=== PATIENT | female | born 1955 | race American Indian/Alaskan Native ===

== ENCOUNTER 2017-01-14 21:30 | Inpatient (IN) | payer OTHER ==
[2017-01-14] MEDS ORDERED: NACL 0.9% 1000 ML 1,000 ML ONE (22:00)
--- NOTE | 2017-01-14 22:03 | Emergency Department Report ---
HPI - General Chief Complaint: Altered Mental Status Time Seen by Provider: 01/14/17 21:52 - HPI HPI: Room 5 The patient is a 61-year-old female presenting with a chief complaint of altered mental status. The patient has a history of diabetes and it is unknown the last time she took her insulin. Per EMS the daughter felt the patient in a confused state and rambling and called EMS. EMS started an IV and transported the patient to the ED for evaluation. The patient was found to be hyperglycemic (556) and confused. The patient does not respond to questions verbally but thrashes about the bed and exhibits what appears to be Kussmaul respirations. There is no family at bedside Location: Mental state Duration: Unknown Quality: Altered, hyperglycemic Severity: Glucose 556 Modifying factors: [see above] Context: [see above] Mode of transportation: EMS ED Past Medical Hx - Past Medical History Hx Diabetes: Yes - Surgical History Additional Surgical History: Unknown - Family History Family history: no significant - Social History Smoking Status: Unknown if ever smoked Substance Use Type: None ED Review of Systems ROS: Stated complaint: HBS Other details as noted in HPI Comment: Unobtainable due to pts medical conditions Physical Exam - Physical Exam Vital Signs: Vital Signs 01/14/17 21:31 Temperature 97.3 F L Pulse Rate 96 H O2 Sat by Pulse 100 Oximetry Physical Exam: GENERAL: The patient is well-developed well-nourished female lying transversely across stretcher with head and legs sticking out of rails appearing confused with Kussmaul respirations. [] HEENT: Normocephalic. Atraumatic. Patient has dry mucous membranes. NECK: Supple. Trachea midline CHEST/LUNGS: K[place]maul respirations HEART/CARDIOVASCULAR: Regular. There is no tachycardia. There is no gallop rub or murmur. ABDOMEN: Abdomen is soft, nontender. Patient has normal bowel sounds. There is no abdominal distention. SKIN: There is no rash. There is no edema. There is no diaphoresis. NEURO: The patient is lethargic in appearance, patient thrashes about the bed at times. Patient does not respond verbally. MUSCULOSKELETAL: There is no evidence of acute injury. ED Course Vital Signs 01/14/17 21:31 Temperature 97.3 F L Pulse Rate 96 H O2 Sat by Pulse 100 Oximetry ED Medical Decision Making - Lab Data Result diagrams: 01/14/17 22:04 01/14/17 22:04 Laboratory Tests 01/14/17 01/14/17 01/14/17 22:04 22:04 22:04 WBC 10.7 RBC 3.50 L Hgb 9.6 L Hct 34.9 MCV 100 H MCH 27 L MCHC 27 L RDW 16.3 H Plt Count 294 Lymph % (Auto) 12.3 L [place] % (Auto) 5.4 Eos % (Auto) 0.0 Baso % (Auto) 0.2 Lymph # 1.3 [place] # 0.6 Eos # 0.0 Baso # 0.0 Seg Neutrophils % 82.1 H Seg Neutrophils # 8.8 H PT INR APTT VBG pH 6.857 L* Sodium 125 L Potassium 5.1 H Chloride 81.6 L BUN 44 H Creatinine 2.3 H Estimated GFR 26 BUN/Creatinine Ratio 19.13 Calcium 8.6 Total Creatine Kinase CK-MB (CK-2) CK-MB (CK-2) Rel Index Troponin T NT-Pro-B Natriuret Pep Plasma/Serum Alcohol 01/14/17 01/14/17 01/14/17 22:04 22:04 22:04 WBC RBC Hgb Hct MCV MCH MCHC RDW Plt Count Lymph % (Auto) [place] % (Auto) Eos % (Auto) Baso % (Auto) Lymph # [place] # Eos # Baso # Seg Neutrophils % Seg Neutrophils # PT 15.6 H INR 1.25 H APTT 24.3 VBG pH Sodium Potassium Chloride BUN Creatinine Estimated GFR BUN/Creatinine Ratio Calcium Total Creatine Kinase 120 CK-MB (CK-2) 3.6 CK-MB (CK-2) Rel Index 3.0 Troponin T < 0.010 NT-Pro-B Natriuret Pep 768.5 Plasma/Serum Alcohol < 0.01 - Differential Diagnosis EKG,Electrolytimbalance, infection, substance abuse, alcohol intoxication Critical care attestation.: If time is entered above; I have spent that time in minutes in the direct care of this critically ill patient, excluding procedure time. ED Disposition Clinical Impression: DKA (diabetic ketoacidoses) Disposition: OP ADMITTED IP TO THIS HOSP Is pt being admited?: Yes Does the pt Need Aspirin: No Condition: Serious Instructions: Diabetic Ketoacidosis (ED) Time of Disposition: 22:56 (hospitalist paged)
[2017-01-14 22:25] LABS: Basophils % (Auto) 0.2 % (0.0-1.8); Mean Corpuscular HGB Conc 27 % (30-34); Mean Corpuscular Hemoglobin 27 pg (28-32); Mean Corpuscular Volume 100 fl (79-97); Platelet Count 294 K/mm3 (140-440); Red Cell Distribution Width 16.3 % (13.2-15.2); White Blood Count 10.7 K/mm3 (4.5-11.0)
[2017-01-14] MEDS ORDERED: SODIUM BICARBONATE IV ONE ×4 (22:31→23:58)
[2017-01-14] MEDS ORDERED: NACL 0.9% 1000 ML 1,000 ML IV ONE (22:31)
[2017-01-14 22:32] LABS: Hematocrit 34.9 % (30.3-42.9); Hemoglobin 9.6 gm/dl (10.1-14.3)
[2017-01-14 22:37] LABS: INR 1.25 (0.87-1.13); Partial Thromboplastin Time 24.3 Sec. (24.2-36.6)
[2017-01-14 22:42] LABS: Creatine Kinase MB 3.6 ng/mL (0.0-4.0)
[2017-01-14 22:43] LABS: BUN/Creatinine Ratio 19.13; Calcium 8.6 mg/dL (8.4-10.2); Chloride 81.6 mmol/L (98-107); Potassium 5.1 mmol/L (3.6-5.0)
[2017-01-14 22:44] LABS: Creatine Kinase 120 units/L (30-135)
[2017-01-14] MEDS ORDERED: D50W (25GM) IV PRN (22:54)
[2017-01-14] MEDS ORDERED: NovoLIN R 100 UNITS in NACL 0.9% 99 ML IV SCH (23:00)
[2017-01-14] MEDS ORDERED: ROCEPHIN/NS 1 GM/50 ML 1 GM/50 ML BAG IV ONE (23:17)
[2017-01-14 23:26] LABS: B-Hydroxybutyrate 141.4 mg/dL (0.2-2.8)
[2017-01-14 23:44] LABS: BUN/Creatinine Ratio 18.69; Blood Urea Nitrogen 43 mg/dL (7-17); Calcium 8.4 mg/dL (8.4-10.2); Magnesium 2.2 mg/dL (1.7-2.3); Phosphorous 6.1 mg/dL (2.5-4.5)
[2017-01-14 23:45] LABS: Chloride 83.1 mmol/L (98-107); Potassium 5.3 mmol/L (3.6-5.0); Sodium 124 mmol/L (137-145)
[2017-01-14] MEDS ORDERED: NACL 0.9% 1000 ML 1,000 ML IV SCH (23:45)
[2017-01-14] MEDS: NovoLIN R 100 UNITS in NACL 0.9% 99 ML IV SCH (23:45)
[2017-01-14] MEDS ORDERED: ZOFRAN IV PRN (23:49)
[2017-01-14] MEDS ORDERED: DULCOLAX PR PRN (23:49)
[2017-01-14] MEDS ORDERED: ALUM-MAG HYDROX-SIMETH 200-200-20MG/5ML PO PRN (23:49)
[2017-01-14 23:54] LABS: Anion Gap 44 mmol/L
--- NOTE | 2017-01-14 23:54 | History and Physical Report ---
History of Present Illness Date of examination: 01/14/17 History of present illness: 61-year-old woman with a history of diabetes was brought to the emergency room because her blood sugars at home have been very high, she's had multiple episodes of nausea vomiting. Spouse at bedside stated that patient does not take her insulin as she should. Other review of system is unobtainable PAST SURGICAL HISTORY: Fibroidectomy SOCIAL HISTORY: Denies alcohol, tobacco, drugs FAMILY HISTORY: Diabetes Medications and Allergies Allergies Allergy/AdvReac Type Severity Reaction Status Date / Time meperidine HCl [From Demerol] Allergy Itching Verified 01/15/17 02:53 Home Medications Medication Instructions Recorded Confirmed Last Taken Type Unobtainable 01/15/17 01/15/17 Unknown History Active Meds: Active Medications Acetaminophen (Tylenol) 650 mg PO Q6H PRN PRN Reason: Pain Al Hydrox/Mg Hydrox/Simethicone (Alum-Mag Hydrox-Simeth [id number]/5ml) 30 ml PO Q4H PRN PRN Reason: Indigestion Bisacodyl (Dulcolax) 10 mg [place] QDAY PRN PRN Reason: constipation unrelieved by MOM Dextrose (D50w (25gm)) 0 ml IV ONCE PRN PRN Reason: Hypoglycemia Dextrose (D50w (25gm)) 0 ml IV ONCE PRN PRN Reason: Hypoglycemia Enoxaparin Sodium (Lovenox) 30 mg SUB-Q QDAY RUBIO Insulin Human Regular 100 (units/ Sodium Chloride) 100 mls @ 6 mls/hr IV TITR RUBIO; 6 UNITS/HR PRN Reason: Protocol Potassium Chloride/Dextrose/Sod Cl (D5w/0.45% Nacl/Kcl 20 Meq) 20 meq in 1,000 mls @ 125 mls/hr IV DIRECT RUBIO Sodium Chloride (Nacl 0.9% 1000 Ml) 1,000 mls @ 150 mls/hr IV DIRECT RUBIO Insulin Human Regular 100 (units/ Sodium Chloride) 100 mls @ 1 mls/hr IV TITR RUBIO; 1 UNITS/HR PRN Reason: Protocol Ondansetron HCl (Zofran) 4 mg IV Q8H PRN PRN Reason: N/V unrelieved by Reglan Exam - Physical Exam Narrative exam: Gen. appearance: Patient lying in bed, no apparent distress HEENT: Normocephalic, atraumatic, pupils equally round and reactive to light, unable to do extraocular movement , and no sclericterus,. No JVD or thyromegaly or nodule,neck supple, no carotid bruit ,mucous membranes dry, no exudate or erythema Heart: S1, S2, regular rate and rhythm Lungs: Clear to auscultation bilaterally, breathing comfortable Abdomen: Positive bowel sounds, nontender, nondistended, no organomegaly Extremity: No edema, cyanosis, clubbing Skin: No rash, nodules, warm, dry Neuro: Confused, moves all extremities - Constitutional Vitals: Temp Pulse Resp BP Pulse Ox 89.9 F L 96 H 35 H 100 01/14/17 23:00 01/14/17 21:31 01/14/17 22:33 01/14/17 22:33 Results - Labs CBC & Chem 7: 01/18/17 05:47 01/18/17 05:47 Labs: Abnormal lab results 01/14/17 01/14/17 01/14/17 Range/Units 21:54 22:04 22:04 RBC 3.50 L (3.65-5.03) M/mm3 Hgb 9.6 L (10.1-14.3) gm/dl MCV 100 H (79-97) fl MCH 27 L (28-32) pg MCHC 27 L (30-34) % RDW 16.3 H (13.2-15.2) % Lymph % (Auto) 12.3 L (13.4-35.0) % Seg Neutrophils % 82.1 H (40.0-70.0) % Seg Neutrophils # 8.8 H (1.8-7.7) K/mm3 PT (12.2-14.9) Sec. INR (0.87-1.13) VBG pH (7.320-7.420) Sodium 125 L (137-145) mmol/L Potassium 5.1 H (3.6-5.0) mmol/L Chloride 81.6 L (98-107) mmol/L Carbon Dioxide 3 L* (22-30) mmol/L BUN 44 H (7-17) mg/dL Creatinine 2.3 H (0.7-1.2) mg/dL Glucose 746 H* (65-100) mg/dL POC Glucose > 500 H (70-105) Phosphorus (2.5-4.5) mg/dL Ketones 141.4 H (0.2-2.8) mg/dL 01/14/17 01/14/17 01/14/17 Range/Units 22:04 22:04 22:50 RBC (3.65-5.03) M/mm3 Hgb (10.1-14.3) gm/dl MCV (79-97) fl MCH (28-32) pg MCHC (30-34) % RDW (13.2-15.2) % Lymph % (Auto) (13.4-35.0) % Seg Neutrophils % (40.0-70.0) % Seg Neutrophils # (1.8-7.7) K/mm3 PT 15.6 H (12.2-14.9) Sec. INR 1.25 H (0.87-1.13) VBG pH 6.857 L* (7.320-7.420) Sodium (137-145) mmol/L Potassium (3.6-5.0) mmol/L Chloride (98-107) mmol/L Carbon Dioxide (22-30) mmol/L BUN (7-17) mg/dL Creatinine (0.7-1.2) mg/dL Glucose (65-100) mg/dL POC Glucose > 500 H (70-105) Phosphorus (2.5-4.5) mg/dL Ketones (0.2-2.8) mg/dL 01/14/17 01/14/17 Range/Units 23:15 23:15 RBC (3.65-5.03) M/mm3 Hgb (10.1-14.3) gm/dl MCV (79-97) fl MCH (28-32) pg MCHC (30-34) % RDW (13.2-15.2) % Lymph % (Auto) (13.4-35.0) % Seg Neutrophils % (40.0-70.0) % Seg Neutrophils # (1.8-7.7) K/mm3 PT (12.2-14.9) Sec. INR (0.87-1.13) VBG pH (7.320-7.420) Sodium 124 L (137-145) mmol/L Potassium 5.3 H (3.6-5.0) mmol/L Chloride 83.1 L (98-107) mmol/L Carbon Dioxide (22-30) mmol/L BUN 43 H (7-17) mg/dL Creatinine 2.3 H (0.7-1.2) mg/dL Glucose (65-100) mg/dL POC Glucose (70-105) Phosphorus 6.1 H (2.5-4.5) mg/dL Ketones (0.2-2.8) mg/dL - Imaging and Cardiology EKG: image reviewed Assessment and Plan Severe DKA Severe metabolic acidosis Altered mental status secondary to #1 Pseudohyponatremia Hypotension Start aggressive IV fluids, insulin drip Give sodium bicarbonate now, monitor serum electrolytes, check fingersticks Start empiric antibiotic, check CT head, start DVT prophylaxis Consult Critical care
[2017-01-14 23:56] LABS: Carbon Dioxide < 2.0 mmol/L (22-30); Glucose 737 mg/dL (65-100)
[2017-01-15] MEDS ORDERED: SODIUM BICARBONATE IV ONE ×3 (00:08→01:16)
[2017-01-15 00:49] LABS: Calcium 7.7 mg/dL (8.4-10.2); Chloride 84.5 mmol/L (98-107); Potassium 4.3 mmol/L (3.6-5.0)
[2017-01-15 00:50] LABS: Phosphorous 5.7 mg/dL (2.5-4.5)
[2017-01-15] MEDS ORDERED: VANCOMYCIN/NS 1 GM/250 ML 1 GM/250 ML BAG IV ONE (01:20)
[2017-01-15] MEDS ORDERED: LEVOPHED DRIP 4 MG/NS 250 ML 4 MG/250 ML BAG IV SCH (02:00)
[2017-01-15 05:27] LABS: BUN/Creatinine Ratio 20.52; Calcium 7.1 mg/dL (8.4-10.2); Chloride 90.9 mmol/L (98-107); Potassium 3.3 mmol/L (3.6-5.0)
[2017-01-15] MEDS ORDERED: NACL 0.9% 1000 ML 1,000 ML IV SCH (06:00)
[2017-01-15 07:47] LABS: Calcium 7.4 mg/dL (8.4-10.2); Potassium 3.3 mmol/L (3.6-5.0)
[2017-01-15] MEDS: D5W/0.45% NACL/KCL 20 MEQ 20 MEQ/1,000 ML BAG IV SCH (08:00)
[2017-01-15] MEDS: KCL 20MEQ/100ML 20 MEQ/100 ML BAG IV SCH ×2 (09:26→11:00)
[2017-01-15] MEDS ORDERED: LOVENOX SUB-Q SCH (10:00)
[2017-01-15] MEDS ORDERED: LEVAQUIN 750MG/150ML 750 MG/150 ML BAG IV SCH (10:00)
[2017-01-15] MEDS ORDERED: VANCOMYCIN PHARMACY TO DOSE IV SCH (10:00)
[2017-01-15] MEDS ORDERED: PEPCID IV SCH (10:00)
[2017-01-15] MEDS: NovoLIN R 100 UNITS in NACL 0.9% 99 ML IV SCH ×8 (10:03→18:00)
[2017-01-15] MEDS ORDERED: VANCOMYCIN VIAL 1,250 MG in NACL 0.9% 500 ML 500 ML IV ONE (11:00)
[2017-01-15] MEDS ORDERED: VANCOMYCIN VIAL 1,250 MG in NACL 0.9% 250ML 250 ML IV ONE (11:00)
[2017-01-15] MEDS ORDERED: MAXIPIME/NS 1 GM/100 ML 1 GM/100 ML BAG IV SCH (12:00)
[2017-01-15 12:10] LABS: ISTAT Base Excess -7; ISTAT HCO3 18.2; ISTAT PO2 163 (80-105); ISTAT SO2 99; ISTAT TCO2 19
[2017-01-15] MEDS: NACL 0.9% 1000 ML 1,000 ML IV SCH ×2 (12:14→13:17)
[2017-01-15 12:39] LABS: Urine Drugs of Abuse Note Disclamer
[2017-01-15 12:51] LABS: Bacteria,Urine 1+ /HPF (Negative); Bilirubin,Urine NEG (Negative); Blood,Urine MOD (Negative); Ketones,Urine 20 mg/dL (Negative); Leukocyte Esterase,Urine LG (Negative); Mucus,Urine FEW /HPF; Nitrite,Urine NEG (Negative); Urobilinogen,Urine < 2.0 mg/dL (<2.0)
[2017-01-15 13:04] LABS: WBC,Urine > 182.0 /HPF (0.0-6.0)
[2017-01-15] MEDS: HEPARIN SUB-Q SCH ×2 (13:19→21:20)
--- NOTE | 2017-01-15 13:39 | Admit Criteria Form ---
Admission Criteria Documentation: DIABETES Clinical Indications for Admission to Inpatient Care (Place 'X' for any and all applicable criteria): Admission is indicated by presence of ALL (if I & II) or ANY ONE (if III or IV) of the following (1)(2)(3)(4): [X]I. Diabetes is uncontrolled as indicated by ANY ONE of the following: [X]a) Diabetic ketoacidosis as indicated by ALL of the following (8): [X]i) Hyperglycemia (eg, plasma glucose greater than 200 mg/ dL (11.1 mmol/L)) [X]ii) Acidosis (eg, arterial pH less than 7.30, serum bicarbonate level less than 15 mEq/L (mmol/L)) [X]iii) Moderate ketonuria or ketonemia [ ]b) Hyperglycemic hyperosmolar state as indicated by ALL of the following(9)(10): [ ]i) Neurologic dysfunction (eg, stupor, coma, hemiparesis , seizure)(13) [ ]ii) Plasma glucose greater than 600 mg/dL (33.3 mmol/L) [ ]iii) Serum osmolality greater than 320 mOsm/kg (mmol/kg) [X]c) Severe signs or symptoms secondary to hyperglycemia indicated by ANY ONE of the following: [X]i) Altered mental status(10) [X]ii) Significant hypovolemia or dehydration [ ]iii) Intractable nausea or vomiting [ ]iv) Unexplained fever or severe infection [X]v) Severe electrolyte abnormality (eg, hypokalemia, hyperkalemia, hypernatremia) [ ]II. Management at other levels of care (Also use Diabetes: Observation Care as appropriate) is not feasible because of ANY ONE of the following: [ ]a) Condition was not adequately corrected with treatment at other levels of care. [ ]b) Treatment at other levels of care is not appropriate because of condition severity (eg, hyperosmolar coma). [X]III. Contraindications and/or Inappropriate clinical situations for Observational Care in patients with Diabetes, when ANY ONE of the following is required: [ X]a) Patient require specific diagnostic workup or therapeutic intervention 22 [ X]b) Patient with abnormal vital signs or altered mental status 23 [X]IV. General contraindications and/or Inappropriate clinical situations for Observational Care in patients with Diabetes, when ANY ONE of the following is required: [ ]a) Prediction of prolongation of LOS based on ANY ONE of the following may be considered as a contraindication for observational care 2, 3, 4, 5, 6, 7, 8, 9, 10, 11 [ ]i) Age > 65 yrs. [ ]ii) Patient arriving by ambulance [ ]iii) Patient with high acuity [ ]iv) Patient requiring vital sign monitoring [X]v) Patient on IV medication [ ]b) Systolic blood pressures 180mmHg 3,12 [X ]c) Patient with altered mental status including delirium and other alteration of consciousness, (3) [ ]d) Patient whose discharge disposition will be to a fpc home or rehabilitation home should not be managed in Emergency Department Observation Unit. CMS rule requires 3 days hospital stay before such placement.3,13 [ ]e) Patient with failure to thrive due to broad array of etiologies 3,16,17 [ ]f) Inability to ambulate 3,14 Extended stay beyond goal length of stay may be needed for(3)(20): [ ]a) Treatment of precipitating causes [ ]b) Development of hypoglycemia [ ]c) Complications of treatment [ ]d) Complications of decompensated diabetes (eg, acute gastric dilatation, persistent metabolic or neurologic derangement) [ ]e) Active Comorbidities [ ]f) Older patients( 65 years or older) The original [employer] content created by [employer] has been revised. The portions of the content which have been revised are identified through the use of italic text or in bold,and [facility] has neither reviewed nor approved the modified material. All other unmodified content is copyright [facility] [employer]. Please see references footnoted in the original [facility] edition 2016 Admission Criteria Met: Yes
[2017-01-15 16:15] LABS: Calcium 6.7 mg/dL (8.4-10.2)
--- NOTE | 2017-01-15 16:24 | Consultation ---
History of Present Illness Consult date: 01/15/17 Requesting physician: ALEX LARSEN Reason for consult: other (DKA, ? Sepsis) History of present illness: 61 yo admitted with weakness, hypotension requiring pressors, altered mental status, N/V/D and poor PO intake. Recently d/c'd from [facility] due to DKA, got worse after getting home. No fevers, chills, chest pain, bloody stools. Active Medications Acetaminophen (Tylenol) 650 mg PO Q6H PRN PRN Reason: Pain Al Hydrox/Mg Hydrox/Simethicone (Alum-Mag Hydrox-Simeth [phone]/5ml) 30 ml PO Q4H PRN PRN Reason: Indigestion Bisacodyl (Dulcolax) 10 mg AL QDAY PRN PRN Reason: constipation unrelieved by MOM Dextrose (D50w (25gm)) 0 ml IV ONCE PRN PRN Reason: Hypoglycemia Famotidine (Pepcid) 20 mg IV DAILY RUBIO Last Admin: 01/15/17 10:08 Dose: 20 mg Heparin Sodium (Porcine) (Heparin) 5,000 unit SUB-Q Q8HR RUBIO Last Admin: 01/15/17 13:19 Dose: 5,000 unit Potassium Chloride/Dextrose/Sod Cl (D5w/0.45% Nacl/Kcl 20 Meq) 20 meq in 1,000 mls @ 125 mls/hr IV DIRECT RUBIO Last Admin: 01/15/17 08:00 Dose: 125 mls/hr Insulin Human Regular 100 (units/ Sodium Chloride) 100 mls @ 1 mls/hr IV TITR RUBIO; 1 UNITS/HR PRN Reason: Protocol Last Admin: 01/15/17 15:57 Dose: 1.5 units/hr, 1.5 mls/hr Norepinephrine (Levophed Drip 4 Mg/Ns 250 Ml) 4 mg in 250 mls @ 7.5 mls/hr IV TITR RUBIO; 2 MCG/MIN PRN Reason: Protocol Last Admin: 01/15/17 02:09 Dose: 2 mcg/min, 7.5 mls/hr Cefepime HCl (Maxipime/Ns 1 Gm/100 Ml) 1 gm in 100 mls @ 200 mls/hr IV Q24HR RUBIO PRN Reason: Protocol Last Admin: 01/15/17 11:02 Dose: 200 mls/hr Levofloxacin/Dextrose (Levaquin 750mg/150ml) 750 mg in 150 mls @ 100 mls/hr IV Q48HR RUBIO PRN Reason: Protocol Last Admin: 01/15/17 10:08 Dose: 100 mls/hr Ondansetron HCl (Zofran) 4 mg IV Q8H PRN PRN Reason: N/V unrelieved by Reglan Vancomycin HCl (Vancomycin Pharmacy To Dose) 1 each IV PKCONSULT RUBIO PRN Reason: Protocol Past History Past Medical History: other (DM) Social history: full code. denies: smoking, alcohol abuse, prescription drug abuse, IV drug use Family history: other (No pulm issues reported) Medications and Allergies Allergies Allergy/AdvReac Type Severity Reaction Status Date / Time meperidine HCl [From Demerol] Allergy Itching Verified 01/15/17 02:53 Home Medications Medication Instructions Recorded Confirmed Last Taken Type Unobtainable 01/15/17 01/15/17 Unknown History Active Meds: Active Medications Acetaminophen (Tylenol) 650 mg PO Q6H PRN PRN Reason: Pain Al Hydrox/Mg Hydrox/Simethicone (Alum-Mag Hydrox-Simeth [id number]/5ml) 30 ml PO Q4H PRN PRN Reason: Indigestion Bisacodyl (Dulcolax) 10 mg AL QDAY PRN PRN Reason: constipation unrelieved by MOM Dextrose (D50w (25gm)) 0 ml IV ONCE PRN PRN Reason: Hypoglycemia Famotidine (Pepcid) 20 mg IV DAILY RUBIO Last Admin: 01/15/17 10:08 Dose: 20 mg Heparin Sodium (Porcine) (Heparin) 5,000 unit SUB-Q Q8HR RUBIO Last Admin: 01/15/17 13:19 Dose: 5,000 unit Potassium Chloride/Dextrose/Sod Cl (D5w/0.45% Nacl/Kcl 20 Meq) 20 meq in 1,000 mls @ 125 mls/hr IV DIRECT RUBIO Last Admin: 01/15/17 08:00 Dose: 125 mls/hr Insulin Human Regular 100 (units/ Sodium Chloride) 100 mls @ 1 mls/hr IV TITR RUBIO; 1 UNITS/HR PRN Reason: Protocol Last Admin: 01/15/17 15:57 Dose: 1.5 units/hr, 1.5 mls/hr Norepinephrine (Levophed Drip 4 Mg/Ns 250 Ml) 4 mg in 250 mls @ 7.5 mls/hr IV TITR RUBIO; 2 MCG/MIN PRN Reason: Protocol Last Admin: 01/15/17 02:09 Dose: 2 mcg/min, 7.5 mls/hr Cefepime HCl (Maxipime/Ns 1 Gm/100 Ml) 1 gm in 100 mls @ 200 mls/hr IV Q24HR RUBIO PRN Reason: Protocol Last Admin: 01/15/17 11:02 Dose: 200 mls/hr Levofloxacin/Dextrose (Levaquin 750mg/150ml) 750 mg in 150 mls @ 100 mls/hr IV Q48HR RUBIO PRN Reason: Protocol Last Admin: 01/15/17 10:08 Dose: 100 mls/hr Ondansetron HCl (Zofran) 4 mg IV Q8H PRN PRN Reason: N/V unrelieved by Mikala Vancomycin HCl (Vancomycin Pharmacy To Dose) 1 each IV PKCONSULT RUBIO PRN Reason: Protocol Review of Systems All systems: negative (neg x 10 except as per HPI) Physical Examination Vital signs: Vital Signs Temp Pulse Pulse Ox 97.3 F L 96 H 100 01/14/17 21:31 01/14/17 21:31 01/14/17 21:31 Vital Signs - 24 hr 01/14/17 01/14/17 01/14/17 21:31 21:40 22:00 Temperature 97.3 F L Pulse Rate 96 H Respiratory Rate Blood Pressure 141/81 Blood Pressure [Left] O2 Sat by Pulse 100 100 99 Oximetry 01/14/17 01/14/17 01/14/17 22:33 23:00 23:30 Temperature 89.9 F L Pulse Rate 82 83 Respiratory 35 H 28 H 28 H Rate Blood Pressure Blood Pressure 84/72 92/48 [Left] O2 Sat by Pulse 100 100 100 Oximetry 01/15/17 01/15/17 01/15/17 00:00 00:30 01:00 Temperature Pulse Rate 89 87 91 H Respiratory 24 24 24 Rate Blood Pressure Blood Pressure 73/38 70/38 69/36 [Left] O2 Sat by Pulse 100 100 100 Oximetry 01/15/17 01/15/17 01/15/17 01:30 02:00 02:15 Temperature 90.4 F L Pulse Rate 92 H 92 H 86 Respiratory 22 22 20 Rate Blood Pressure Blood Pressure 76/43 73/39 67/41 [Left] O2 Sat by Pulse 100 100 100 Oximetry 01/15/17 01/15/17 01/15/17 02:30 02:45 03:00 Temperature Pulse Rate 94 H 95 H 101 H Respiratory 20 20 20 Rate Blood Pressure Blood Pressure 85/47 93/49 100/58 [Left] O2 Sat by Pulse 100 100 100 Oximetry 01/15/17 01/15/17 01/15/17 03:30 04:47 04:49 Temperature 94.2 F L Pulse Rate 101 H Respiratory 20 Rate Blood Pressure 160/97 Blood Pressure 118/62 [Left] O2 Sat by Pulse 100 98 Oximetry 01/15/17 01/15/17 01/15/17 04:50 05:00 05:11 Temperature Pulse Rate 90 86 Respiratory 17 18 Rate Blood Pressure 160/97 144/96 144/96 Blood Pressure [Left] O2 Sat by Pulse 96 98 97 Oximetry 01/15/17 01/15/17 01/15/17 05:21 05:30 05:41 Temperature 94.2 F L Pulse Rate 86 105 H 106 H Respiratory 14 14 17 Rate Blood Pressure 145/101 119/67 119/67 Blood Pressure [Left] O2 Sat by Pulse 97 100 100 Oximetry 01/15/17 01/15/17 01/15/17 05:51 06:00 06:11 Temperature Pulse Rate 106 H 111 H 111 H Respiratory 13 14 14 Rate Blood Pressure 116/59 114/64 114/64 Blood Pressure [Left] O2 Sat by Pulse 100 100 100 Oximetry 01/15/17 01/15/17 01/15/17 06:21 06:30 06:41 Temperature Pulse Rate 103 H 102 H 101 H Respiratory 14 14 14 Rate Blood Pressure 112/65 103/59 103/59 Blood Pressure [Left] O2 Sat by Pulse 100 100 100 Oximetry 01/15/17 01/15/17 01/15/17 06:51 07:01 07:11 Temperature Pulse Rate 101 H 104 H 107 H Respiratory 12 13 17 Rate Blood Pressure 105/56 105/56 105/56 Blood Pressure [Left] O2 Sat by Pulse 100 100 100 Oximetry 01/15/17 01/15/17 01/15/17 07:21 07:30 07:41 Temperature Pulse Rate 106 H 105 H 103 H Respiratory 12 16 16 Rate Blood Pressure 111/57 110/58 110/58 Blood Pressure [Left] O2 Sat by Pulse 100 100 Oximetry 01/15/17 01/15/17 01/15/17 07:51 08:00 08:11 Temperature 98.1 F Pulse Rate 105 H 106 H 108 H Respiratory 17 18 17 Rate Blood Pressure 107/56 104/56 104/56 Blood Pressure [Left] O2 Sat by Pulse 100 100 Oximetry 01/15/17 01/15/17 01/15/17 08:21 08:30 08:41 Temperature Pulse Rate 107 H 108 H 109 H Respiratory 17 17 18 Rate Blood Pressure 106/54 106/55 106/55 Blood Pressure [Left] O2 Sat by Pulse 100 100 Oximetry 01/15/17 01/15/17 01/15/17 08:51 09:00 09:11 Temperature Pulse Rate 127 H 109 H 116 H Respiratory 21 16 16 Rate Blood Pressure 112/57 108/53 108/53 Blood Pressure [Left] O2 Sat by Pulse 100 100 Oximetry 01/15/17 01/15/17 01/15/17 09:21 09:30 09:41 Temperature Pulse Rate 108 H 108 H 108 H Respiratory 18 16 16 Rate Blood Pressure 115/60 105/56 105/56 Blood Pressure [Left] O2 Sat by Pulse 100 100 100 Oximetry 01/15/17 01/15/17 01/15/17 09:51 10:00 10:11 Temperature Pulse Rate 110 H 110 H 110 H Respiratory 18 17 20 Rate Blood Pressure 108/56 109/58 109/58 Blood Pressure [Left] O2 Sat by Pulse 100 100 Oximetry 01/15/17 01/15/17 01/15/17 10:21 10:31 10:41 Temperature Pulse Rate 112 H 111 H 112 H Respiratory 19 21 16 Rate Blood Pressure 111/64 111/64 111/64 Blood Pressure [Left] O2 Sat by Pulse 100 100 100 Oximetry 01/15/17 01/15/17 01/15/17 10:51 11:00 11:11 Temperature Pulse Rate 110 H 112 H 115 H Respiratory 15 16 17 Rate Blood Pressure 117/65 117/63 117/63 Blood Pressure [Left] O2 Sat by Pulse 100 100 Oximetry 01/15/17 01/15/17 01/15/17 11:21 11:30 11:41 Temperature Pulse Rate 116 H 121 H 119 H Respiratory 19 15 19 Rate Blood Pressure 120/66 114/61 114/61 Blood Pressure [Left] O2 Sat by Pulse 100 100 100 Oximetry 01/15/17 01/15/17 01/15/17 11:51 12:00 12:11 Temperature 99.0 F Pulse Rate 120 H 119 H 113 H Respiratory 17 17 15 Rate Blood Pressure 114/61 114/58 114/58 Blood Pressure [Left] O2 Sat by Pulse 100 100 100 Oximetry 01/15/17 01/15/17 01/15/17 12:21 12:30 12:41 Temperature Pulse Rate 115 H 114 H 125 H Respiratory 16 16 21 Rate Blood Pressure 121/64 117/62 117/62 Blood Pressure [Left] O2 Sat by Pulse 100 100 100 Oximetry 01/15/17 01/15/17 01/15/17 12:47 12:51 13:00 Temperature Pulse Rate 117 H 113 H Respiratory 15 16 Rate Blood Pressure 130/67 125/65 Blood Pressure [Left] O2 Sat by Pulse 99 100 100 Oximetry 01/15/17 01/15/17 01/15/17 13:11 13:21 13:30 Temperature Pulse Rate 113 H 112 H 111 H Respiratory 13 17 17 Rate Blood Pressure 125/65 123/66 128/69 Blood Pressure [Left] O2 Sat by Pulse 100 100 100 Oximetry 01/15/17 01/15/17 01/15/17 13:41 13:51 14:00 Temperature Pulse Rate 109 H 110 H 117 H Respiratory 16 15 16 Rate Blood Pressure 128/69 120/65 123/75 Blood Pressure [Left] O2 Sat by Pulse 100 100 100 Oximetry 01/15/17 01/15/17 01/15/17 14:11 14:21 14:30 Temperature Pulse Rate 118 H 113 H 116 H Respiratory 17 16 16 Rate Blood Pressure 123/75 128/75 123/72 Blood Pressure [Left] O2 Sat by Pulse 100 100 100 Oximetry 01/15/17 01/15/17 01/15/17 14:41 14:51 15:00 Temperature Pulse Rate 116 H 113 H 115 H Respiratory 14 13 14 Rate Blood Pressure 123/72 127/72 127/74 Blood Pressure [Left] O2 Sat by Pulse 100 100 100 Oximetry 01/15/17 01/15/17 01/15/17 15:11 15:21 15:30 Temperature Pulse Rate 114 H 111 H 112 H Respiratory 15 18 15 Rate Blood Pressure 127/74 124/72 121/71 Blood Pressure [Left] O2 Sat by Pulse 100 100 100 Oximetry 01/15/17 01/15/17 15:41 15:55 Temperature 98.0 F Pulse Rate 109 H Respiratory 14 Rate Blood Pressure 121/71 Blood Pressure [Left] O2 Sat by Pulse 100 Oximetry General appearance: alert (awake, answers questions), other (critically ill on pressors) Eyes: non-icteric ENT: oropharynx moist Neck: supple Effort: normal Ascultation: Bilateral: clear Cardiovascular: regular rate and rhythm Gastrointestinal: normoactive bowel sounds, soft, non-tender, non-distended Integumentary: normal Extremities: no cyanosis, no edema, pink and warm normal mental status, non-focal exam, pupils equal and round, CN II-XII normal mood appropriate, affect normal Results - Laboratory Findings CBC and BMP: 01/14/17 22:04 01/15/17 15:20 ABG POC ABG pH 7.350 (7.35-7.45) 01/15/17 11:52 POC ABG pCO2 33.0 (35-45) L 01/15/17 11:52 POC ABG pO2 163 (80-105) H 01/15/17 11:52 POC ABG HCO3 18.2 01/15/17 11:52 POC ABG Total CO2 19 01/15/17 11:52 POC ABG O2 Sat 99 01/15/17 11:52 PT/INR, D-dimer PT 15.6 Sec. (12.2-14.9) H 01/14/17 22:04 INR 1.25 (0.87-1.13) H 01/14/17 22:04 Abnormal lab findings: Abnormal Labs 01/15/17 01/15/17 01/15/17 00:15 00:15 04:30 POC ABG pCO2 POC ABG pO2 Sodium 131 L D Potassium 3.3 L D Chloride 84.5 L 90.9 L Carbon Dioxide 2 L* 5 L* BUN 44 H 39 H Creatinine 2.0 H 1.9 H Glucose 739 H* 512 H* POC Glucose Lactic Acid Calcium 7.7 L 7.1 L Phosphorus 5.7 H Urine WBC (Auto) 01/15/17 01/15/17 01/15/17 04:52 05:58 06:59 POC ABG pCO2 POC ABG pO2 Sodium Potassium 3.3 L Chloride Carbon Dioxide 9 L* BUN 38 H Creatinine 2.0 H Glucose 289 H POC Glucose 461 H 360 H Lactic Acid Calcium 7.4 L Phosphorus Urine WBC (Auto) 01/15/17 01/15/17 01/15/17 07:35 07:48 08:53 POC ABG pCO2 POC ABG pO2 Sodium Potassium Chloride Carbon Dioxide BUN Creatinine Glucose POC Glucose 227 H 239 H 181 H Lactic Acid Calcium Phosphorus Urine WBC (Auto) 01/15/17 01/15/17 01/15/17 09:05 09:59 10:57 POC ABG pCO2 POC ABG pO2 Sodium Potassium Chloride Carbon Dioxide BUN Creatinine Glucose POC Glucose 148 H 113 H Lactic Acid 9.4 H* Calcium Phosphorus Urine WBC (Auto) 01/15/17 01/15/17 01/15/17 11:48 11:52 12:30 POC ABG pCO2 33.0 L POC ABG pO2 163 H Sodium Potassium Chloride Carbon Dioxide BUN Creatinine Glucose POC Glucose 118 H Lactic Acid Calcium Phosphorus Urine WBC (Auto) > 182.0 H 01/15/17 01/15/17 01/15/17 13:15 13:31 13:58 POC ABG pCO2 POC ABG pO2 Sodium Potassium Chloride Carbon Dioxide BUN Creatinine Glucose POC Glucose 131 H 116 H Lactic Acid 6.2 H* Calcium Phosphorus Urine WBC (Auto) 01/15/17 01/15/17 15:11 15:20 POC ABG pCO2 POC ABG pO2 Sodium Potassium Chloride 109.0 H Carbon Dioxide BUN 32 H Creatinine 1.6 H Glucose 110 H POC Glucose 110 H Lactic Acid Calcium 6.7 L Phosphorus Urine WBC (Auto) Assessment and Plan Imp: 1. DKA 2. SIRS, r/o sepsis 3. ? UTI 4. Hypovolemic shock, r/o septic shock 5. Lactic acidosis, better 6. BRIGIDA Rec: 1. Extra 2 L of NS bolus now 2. Wean pressors to keep MAP > 65 3. Monitor lactate 4. DKA per protocol 5. Blood and urine cultures + stool for Cdiff + CXR and would continue broad spec ABX until these are confirmed negative 6. DVT PPx 7. Keep in ICU; critically ill CCT 31 minutes Plan of care reviewed w/ patient/sisters, they understand/agree
--- NOTE | 2017-01-15 17:11 | XRay Report ---
FINAL REPORT EXAM: XR CHEST 1V AP HISTORY: Sepsis TECHNIQUE: upright single view chest PRIORS: None. FINDINGS: Cardiac and mediastinal contours are unremarkable. No focal pulmonary infiltrate is identified. No pleural fluid collection seen. Pulmonary vasculature is unremarkable. IMPRESSION: Negative single-view chest
--- NOTE | 2017-01-15 20:07 | Progress Note ---
Assessment and Plan Assessment and plan: 1. DKA - pH 6.8, bicarbonate on admission; this morning AG 44; continue insulin , IV fluids and electrolytes replacement protocol 2. SIRS/Sepsis - check lactic acid and start empiric antibiotics; obtain UA, urine culture, blood cultures 3. Shock - septic and hypovolemic; antibiotics, aggressive hydration, vasodepressors 4. Acute renal failure -due to vasomotor nephropathy versus ATN from hypotension; continue IV fluids; monitoring renal function and electrolytes 5. Severe acidosis - metabolic/lactic; treat underlying conditions 6. Pseudohyponatremia - corrected 7. Acute metabolic encephalopathy - due to all of the above 8. DVT/GI prophylaxis -switch Lovenox heparin subcutaneous due to renal impairment The high probability of a clinically significant, sudden or life threatening deterioration of the [] system(s) required my full and direct attention, intervention and personal management. The aggregate critical care time was [35] minutes. This time is in addition to time spent performing reported procedures but includes the following: [x] Data Review and interpretation [x] Patient assessment and monitoring of vital signs [x] Documentation [x] Medication orders and management History Interval history: Lethargic, on pressors Hospitalist Physical - Constitutional Vitals: Temp Pulse Resp BP Pulse Ox 98.0 F 109 H 14 121/71 100 01/15/17 15:55 01/15/17 15:41 01/15/17 15:41 01/15/17 15:41 01/15/17 19:22 General appearance: Present: mild distress - EENT Eyes: Present: PERRL, EOM intact. Absent: scleral icterus, conjunctival injection - Neck Neck: Present: supple. Absent: enlarged thyroid, masses or JVD - Respiratory Respiratory effort: normal Respiratory: bilateral: diminished, negative: rhonchi, wheezing - Cardiovascular Rhythm: other (tachycardic) Heart Sounds: Present: S1 & S2. Absent: systolic murmur - Extremities Extremities: no ischemia - Abdominal General gastrointestinal: soft, non-tender, non-distended, normal bowel sounds - Integumentary Integumentary: Present: warm, decreased turgor. Absent: jaundice, rash - Psychiatric Psychiatric: other (lethargic) - Neurologic Neurologic: moves all extremities Results - Labs CBC & Chem 7: 01/14/17 22:04 01/15/17 15:20 Labs: Laboratory Last Values WBC 10.7 K/mm3 (4.5-11.0) 01/14/17 22:04 RBC 3.50 M/mm3 (3.65-5.03) L 01/14/17 22:04 Hgb 9.6 gm/dl (10.1-14.3) L 01/14/17 22:04 Hct 34.9 % (30.3-42.9) 01/14/17 22:04 MCV 100 fl (79-97) H 01/14/17 22:04 MCH 27 pg (28-32) L 01/14/17 22:04 MCHC 27 % (30-34) L 01/14/17 22:04 RDW 16.3 % (13.2-15.2) H 01/14/17 22:04 Plt Count 294 K/mm3 (140-440) 01/14/17 22:04 Lymph % (Auto) 12.3 % (13.4-35.0) L 01/14/17 22:04 [place] % (Auto) 5.4 % (0.0-7.3) 01/14/17 22:04 Eos % (Auto) 0.0 % (0.0-4.3) 01/14/17 22:04 Baso % (Auto) 0.2 % (0.0-1.8) 01/14/17 22:04 Lymph # 1.3 K/mm3 (1.2-5.4) 01/14/17 22:04 [place] # 0.6 K/mm3 (0.0-0.8) 01/14/17 22:04 Eos # 0.0 K/mm3 (0.0-0.4) 01/14/17 22:04 Baso # 0.0 K/mm3 (0.0-0.1) 01/14/17 22:04 Seg Neutrophils % 82.1 % (40.0-70.0) H 01/14/17 22:04 Seg Neutrophils # 8.8 K/mm3 (1.8-7.7) H 01/14/17 22:04 PT 15.6 Sec. (12.2-14.9) H 01/14/17 22:04 INR 1.25 (0.87-1.13) H 01/14/17 22:04 APTT 24.3 Sec. (24.2-36.6) 01/14/17 22:04 POC ABG pH 7.350 (7.35-7.45) 01/15/17 11:52 POC ABG pCO2 33.0 (35-45) L 01/15/17 11:52 POC ABG pO2 163 (80-105) H 01/15/17 11:52 POC ABG HCO3 18.2 01/15/17 11:52 POC ABG Total CO2 19 01/15/17 11:52 POC ABG O2 Sat 99 01/15/17 11:52 POC ABG Base Excess -7 01/15/17 11:52 VBG pH 6.857 (7.320-7.420) L* 01/14/17 22:04 FiO2 1 % 01/15/17 11:52 Sodium 144 mmol/L (137-145) 01/15/17 15:20 Potassium 4.0 mmol/L (3.6-5.0) D 01/15/17 15:20 Chloride 109.0 mmol/L (98-107) H 01/15/17 15:20 Carbon Dioxide 20 mmol/L (22-30) L D 01/15/17 15:20 Anion Gap 19 mmol/L 01/15/17 15:20 BUN 32 mg/dL (7-17) H 01/15/17 15:20 Creatinine 1.6 mg/dL (0.7-1.2) H 01/15/17 15:20 Estimated GFR 40 ml/min 01/15/17 15:20 BUN/Creatinine Ratio 20.00 % 01/15/17 15:20 Glucose 110 mg/dL (65-100) H 01/15/17 15:20 POC Glucose 136 (70-105) H 01/15/17 17:49 Lactic Acid 6.2 mmol/L (0.7-2.0) H* 01/15/17 13:31 Calcium 6.7 mg/dL (8.4-10.2) L 01/15/17 15:20 Phosphorus 5.7 mg/dL (2.5-4.5) H 01/15/17 00:15 Magnesium 2.0 mg/dL (1.7-2.3) 01/15/17 00:15 Total Creatine Kinase 120 units/L (30-135) 01/14/17 22:04 CK-MB (CK-2) 3.6 ng/mL (0.0-4.0) 01/14/17 22:04 CK-MB (CK-2) Rel Index 3.0 (0-4) 01/14/17 22:04 Troponin T < 0.010 ng/mL (0.00-0.029) 01/14/17 22:04 NT-Pro-B Natriuret Pep 768.5 pg/mL (0-900) 01/14/17 22:04 Urine Color Yellow (Yellow) 01/15/17 12:30 Urine Turbidity Turbid (Clear) 01/15/17 12:30 Urine pH 5.0 (5.0-7.0) 01/15/17 12:30 Ur Specific [place] 1.016 (1.003-1.030) 01/15/17 12:30 Urine Protein 30 mg/dl mg/dL (Negative) 01/15/17 12:30 Urine Glucose (UA) Neg mg/dL (Negative) 01/15/17 12:30 Urine Ketones 20 mg/dL (Negative) 01/15/17 12:30 Urine Blood Mod (Negative) 01/15/17 12:30 Urine Nitrite Neg (Negative) 01/15/17 12:30 Urine Bilirubin Neg (Negative) 01/15/17 12:30 Urine Urobilinogen < 2.0 mg/dL (<2.0) 01/15/17 12:30 Ur Leukocyte Esterase Lg (Negative) 01/15/17 12:30 Urine WBC (Auto) > 182.0 /HPF (0.0-6.0) H 01/15/17 12:30 Urine RBC (Auto) 39.0 /HPF (0.0-6.0) 01/15/17 12:30 U Epithel Cells (Auto) 4.0 /HPF (0-13.0) 01/15/17 12:30 Urine Bacteria (Auto) 1+ /HPF (Negative) 01/15/17 12:30 Urine Mucus Few /HPF 01/15/17 12:30 Urine Opiates Screen Presumptive negative 01/15/17 12:30 Urine Methadone Screen Presumptive negative 01/15/17 12:30 Ur Barbiturates Screen Presumptive negative 01/15/17 12:30 Ur Phencyclidine Scrn Presumptive negative 01/15/17 12:30 Ur Amphetamines Screen Presumptive negative 01/15/17 12:30 U Benzodiazepines Scrn Presumptive negative 01/15/17 12:30 Urine Cocaine Screen Presumptive negative 01/15/17 12:30 U Marijuana (THC) Screen Presumptive negative 01/15/17 12:30 Drugs of Abuse Note Disclamer 01/15/17 12:30 Plasma/Serum Alcohol < 0.01 gm% (0-0.07) 01/14/17 22:04 Ketones 141.4 mg/dL (0.2-2.8) H 01/14/17 22:04 - Imaging and Cardiology CT Scan - head: report reviewed
[2017-01-15 23:41] LABS: BUN/Creatinine Ratio 22.3; Calcium 6.7 mg/dL (8.4-10.2); Potassium 4.3 mmol/L (3.6-5.0)
[2017-01-16 02:39] LABS: BUN/Creatinine Ratio 23.33; Calcium 6.7 mg/dL (8.4-10.2)
[2017-01-16 02:40] LABS: Chloride 109.8 mmol/L (98-107); Potassium 4.5 mmol/L (3.6-5.0)
[2017-01-16] MEDS: D5W/0.45% NACL/KCL 20 MEQ 20 MEQ/1,000 ML BAG IV SCH (03:40)
[2017-01-16 05:05] LABS: Basophils % (Auto) 0.1 % (0.0-1.8); Eosinophils % (Auto) 0.1 % (0.0-4.3); Hemoglobin 8.8 gm/dl (10.1-14.3); Mean Corpuscular HGB Conc 32 % (30-34); Mean Corpuscular Hemoglobin 27 pg (28-32); Platelet Count 177 K/mm3 (140-440); Red Blood Count 3.21 M/mm3 (3.65-5.03); White Blood Count 5.6 K/mm3 (4.5-11.0)
[2017-01-16 05:27] LABS: Alanine Aminotransferase 30 units/L (7-56); Albumin 2.4 g/dL (3.9-5); Albumin/Globulin Ratio 1.1 %; Alkaline Phosphatase 75 units/L (35-129); Anion Gap 17 mmol/L; BUN/Creatinine Ratio 24.54; Bilirubin,Total 0.2 mg/dL (0.1-1.2); Blood Urea Nitrogen 27 mg/dL (7-17); Calcium 6.8 mg/dL (8.4-10.2); Carbon Dioxide 19 mmol/L (22-30); Chloride 109.9 mmol/L (98-107); Glucose 287 mg/dL (65-100); Magnesium 1.3 mg/dL (1.7-2.3); Phosphorous 1.1 mg/dL (2.5-4.5); Sodium 141 mmol/L (137-145); Total Protein 4.6 g/dL (6.3-8.2)
[2017-01-16 05:50] LABS: Hematocrit 30.1 % (30.3-42.9)
[2017-01-16 05:51] LABS: Mean Corpuscular Volume 98 fl (79-97)
[2017-01-16] MEDS: HEPARIN SUB-Q SCH ×3 (06:15→22:02)
[2017-01-16] MEDS ORDERED: SODIUM PHOSPHATE 45 MMOL in NACL 0.9% 500 ML 500 ML IV ONE (08:00)
[2017-01-16] MEDS ORDERED: MAGNESIUM SULFATE 4GM/100ML 4 GM/100 ML BAG IV ONE (08:00)
[2017-01-16] MEDS: LEVAQUIN 750MG/150ML 750 MG/150 ML BAG IV SCH (09:00)
[2017-01-16] MEDS: D5/0.45NS 1,000 ML IV SCH ×2 (09:00→18:04)
[2017-01-16] MEDS: MAXIPIME/NS 1 GM/100 ML 1 GM/100 ML BAG IV SCH ×2 (09:37→22:01)
[2017-01-16] MEDS: VANCOMYCIN/NS 1 GM/250 ML 1 GM/250 ML BAG IV SCH (09:38)
[2017-01-16] MEDS: PEPCID IV SCH ×2 (09:40→22:01)
--- NOTE | 2017-01-16 14:33 | Progress Note ---
Assessment and Plan Imp: 1. DKA 2. SIRS, r/o sepsis 3. ? UTI 4. Hypovolemic shock, r/o septic shock 5. Lactic acidosis, better 6. BRIGIDA Rec: 1. Cont. current IVFs; repleting mag and phos 3. Monitor lactate 4. DKA per protocol 5. Blood and urine cultures + stool for Cdiff and continue broad spec ABX until these are confirmed negative 6. DVT PPx 7. Keep in ICU for 24 hours more 8. Complex decision-making/patient No family present Subjective Date of service: 01/16/17 Principal diagnosis: DKA, ? Sepsis Interval history: Off pressors. BP better. More alert. Weak-appearing. C/o suprapubic pain. No SOB , chest pain. Active Medications Acetaminophen (Tylenol) 650 mg PO Q6H PRN PRN Reason: Pain Al Hydrox/Mg Hydrox/Simethicone (Alum-Mag Hydrox-Simeth [phone]/5ml) 30 ml PO Q4H PRN PRN Reason: Indigestion Bisacodyl (Dulcolax) 10 mg [place] QDAY PRN PRN Reason: constipation unrelieved by MOM Dextrose (D50w (25gm)) 0 ml IV ONCE PRN PRN Reason: Hypoglycemia Famotidine (Pepcid) 20 mg IV BID [facility] Last Admin: 01/16/17 09:40 Dose: 20 mg Heparin Sodium (Porcine) (Heparin) 5,000 unit SUB-Q Q8HR [facility] Last Admin: 01/16/17 13:36 Dose: 5,000 unit Norepinephrine (Levophed Drip 4 Mg/Ns 250 Ml) 4 mg in 250 mls @ 7.5 mls/hr IV TITR RUBIO; 2 MCG/MIN PRN Reason: Protocol Last Admin: 01/15/17 02:09 Dose: 2 mcg/min, 7.5 mls/hr Cefepime HCl (Maxipime/Ns 1 Gm/100 Ml) 1 gm in 100 mls @ 200 mls/hr IV Q12HR RUBIO PRN Reason: Protocol Last Admin: 01/16/17 09:37 Dose: 200 mls/hr Levofloxacin/Dextrose (Levaquin 750mg/150ml) 750 mg in 150 mls @ 100 mls/hr IV Q24HR RUBIO PRN Reason: Protocol Last Admin: 01/16/17 09:00 Dose: 100 mls/hr Vancomycin HCl (Vancomycin/Ns 1 Gm/250 Ml) 1 gm in 250 mls @ 166.667 mls/hr IV Q24HR [facility] Last Admin: 01/16/17 09:38 Dose: 166.667 mls/hr Dextrose/Sodium Chloride (D5/0.45ns) 1,000 mls @ 125 mls/hr IV DIRECT [facility] Last Admin: 01/16/17 09:00 Dose: 125 mls/hr Insulin Human Isoph/Insulin Regular (Novolin 70/30) 10 unit SUB-Q BIDDIAB [facility] Last Admin: 01/16/17 10:16 Dose: 10 unit Insulin Human Regular (Novolin R) 0 units SUB-Q Q6HR [facility] PRN Reason: Protocol Last Admin: 01/16/17 12:00 Dose: 6 units Ondansetron HCl (Zofran) 4 mg IV Q8H PRN PRN Reason: N/V unrelieved by Mikala Vancomycin HCl (Vancomycin Pharmacy To Dose) 1 each IV PKCONSULT [facility] PRN Reason: Protocol Objective Vital Signs - 12hr 01/16/17 01/16/17 01/16/17 02:41 02:51 03:00 Temperature Pulse Rate 117 H 119 H 118 H Pulse Rate [ From Monitor] Pulse Rate [ Radial] Respiratory 17 13 16 Rate Blood Pressure 148/92 138/81 131/60 O2 Sat by Pulse 100 100 100 Oximetry 01/16/17 01/16/17 01/16/17 03:11 03:21 03:30 Temperature Pulse Rate 117 H 116 H 115 H Pulse Rate [ From Monitor] Pulse Rate [ Radial] Respiratory 17 13 19 Rate Blood Pressure 131/60 119/62 94/39 O2 Sat by Pulse 100 100 100 Oximetry 01/16/17 01/16/17 01/16/17 03:41 03:51 04:00 Temperature 9.5 F L Pulse Rate 114 H 113 H 113 H Pulse Rate [ From Monitor] Pulse Rate [ Radial] Respiratory 17 16 18 Rate Blood Pressure 94/39 109/60 109/59 O2 Sat by Pulse 100 100 100 Oximetry 01/16/17 01/16/17 01/16/17 04:11 04:21 04:31 Temperature Pulse Rate 114 H 114 H 118 H Pulse Rate [ From Monitor] Pulse Rate [ Radial] Respiratory 18 18 21 Rate Blood Pressure 109/59 107/75 131/98 O2 Sat by Pulse 100 100 100 Oximetry 01/16/17 01/16/17 01/16/17 04:41 04:51 05:00 Temperature Pulse Rate 113 H 111 H 111 H Pulse Rate [ From Monitor] Pulse Rate [ Radial] Respiratory 17 16 14 Rate Blood Pressure 131/98 115/61 119/69 O2 Sat by Pulse 100 100 100 Oximetry 01/16/17 01/16/17 01/16/17 05:11 05:21 05:30 Temperature Pulse Rate 109 H 111 H 113 H Pulse Rate [ From Monitor] Pulse Rate [ Radial] Respiratory 17 13 16 Rate Blood Pressure 119/69 110/63 115/73 O2 Sat by Pulse 100 100 100 Oximetry 01/16/17 01/16/17 01/16/17 05:41 05:51 06:00 Temperature Pulse Rate 113 H 111 H 111 H Pulse Rate [ From Monitor] Pulse Rate [ Radial] Respiratory 17 16 17 Rate Blood Pressure 115/73 119/77 114/64 O2 Sat by Pulse 100 100 100 Oximetry 01/16/17 01/16/17 01/16/17 06:11 06:21 06:30 Temperature Pulse Rate 113 H 114 H 109 H Pulse Rate [ From Monitor] Pulse Rate [ Radial] Respiratory 12 16 17 Rate Blood Pressure 114/64 119/77 118/67 O2 Sat by Pulse 100 100 100 Oximetry 01/16/17 01/16/17 01/16/17 06:41 06:51 07:00 Temperature Pulse Rate 110 H 110 H 110 H Pulse Rate [ From Monitor] Pulse Rate [ Radial] Respiratory 17 16 19 Rate Blood Pressure 118/67 114/67 116/65 O2 Sat by Pulse 100 100 100 Oximetry 01/16/17 01/16/17 01/16/17 07:11 07:21 07:30 Temperature Pulse Rate 109 H 111 H 113 H Pulse Rate [ From Monitor] Pulse Rate [ Radial] Respiratory 16 16 15 Rate Blood Pressure 116/65 131/76 121/79 O2 Sat by Pulse 100 100 100 Oximetry 01/16/17 01/16/17 01/16/17 07:41 07:51 08:00 Temperature 98.4 F Pulse Rate 112 H 109 H 110 H Pulse Rate [ 118 H From Monitor] Pulse Rate [ 118 H Radial] Respiratory 23 19 21 Rate Blood Pressure 121/79 142/79 145/85 O2 Sat by Pulse 100 100 100 Oximetry 01/16/17 01/16/17 01/16/17 08:11 08:21 08:30 Temperature Pulse Rate 110 H 116 H 113 H Pulse Rate [ From Monitor] Pulse Rate [ Radial] Respiratory 19 16 19 Rate Blood Pressure 145/85 153/90 145/100 O2 Sat by Pulse 100 100 100 Oximetry 01/16/17 01/16/17 01/16/17 08:41 08:51 09:01 Temperature Pulse Rate 120 H 120 H 124 H Pulse Rate [ From Monitor] Pulse Rate [ Radial] Respiratory 15 14 14 Rate Blood Pressure 145/100 145/100 161/104 O2 Sat by Pulse 100 100 100 Oximetry 01/16/17 01/16/17 01/16/17 09:11 09:21 09:30 Temperature Pulse Rate 125 H 119 H 115 H Pulse Rate [ From Monitor] Pulse Rate [ Radial] Respiratory 18 13 16 Rate Blood Pressure 161/104 170/106 154/97 O2 Sat by Pulse 100 100 100 Oximetry 01/16/17 01/16/17 01/16/17 09:41 09:51 10:00 Temperature Pulse Rate 113 H 115 H 113 H Pulse Rate [ From Monitor] Pulse Rate [ Radial] Respiratory 16 14 18 Rate Blood Pressure 154/97 153/93 145/90 O2 Sat by Pulse 100 100 100 Oximetry 01/16/17 01/16/17 01/16/17 10:11 10:21 10:30 Temperature Pulse Rate 111 H 107 H 109 H Pulse Rate [ From Monitor] Pulse Rate [ Radial] Respiratory 18 13 16 Rate Blood Pressure 145/90 136/85 142/92 O2 Sat by Pulse 100 100 100 Oximetry 01/16/17 01/16/17 01/16/17 10:41 10:51 11:00 Temperature Pulse Rate 110 H 111 H 111 H Pulse Rate [ From Monitor] Pulse Rate [ Radial] Respiratory 17 15 15 Rate Blood Pressure 142/92 153/96 153/98 O2 Sat by Pulse 100 100 100 Oximetry 01/16/17 01/16/17 01/16/17 11:11 11:21 11:30 Temperature Pulse Rate 112 H 109 H 106 H Pulse Rate [ From Monitor] Pulse Rate [ Radial] Respiratory 18 16 17 Rate Blood Pressure 153/98 161/97 153/97 O2 Sat by Pulse 100 100 100 Oximetry 01/16/17 11:47 Temperature 987.6 F H Pulse Rate Pulse Rate [ From Monitor] Pulse Rate [ Radial] Respiratory Rate Blood Pressure O2 Sat by Pulse Oximetry Constitutional: no acute distress, alert (awake, answers questions), other (weak -appearing) Eyes: non-icteric ENT: oropharynx moist Neck: supple Effort: normal Ascultation: Bilateral: clear Cardiovascular: regular rate and rhythm (no mrg) Gastrointestinal: normoactive bowel sounds, soft, non-tender, non-distended Integumentary: normal Extremities: no cyanosis, no edema, pink and warm Neurologic: normal mental status, non-focal exam, pupils equal and round, CN II- XII normal Psychiatric: mood appropriate, affect normal CBC and BMP: 01/16/17 04:00 01/16/17 04:00 ABG, PT/INR, D-dimer: ABG POC ABG pH 7.350 (7.35-7.45) 01/15/17 11:52 POC ABG pCO2 33.0 (35-45) L 01/15/17 11:52 POC ABG pO2 163 (80-105) H 01/15/17 11:52 POC ABG HCO3 18.2 01/15/17 11:52 POC ABG Total CO2 19 01/15/17 11:52 POC ABG O2 Sat 99 01/15/17 11:52 PT/INR, D-dimer PT 15.6 Sec. (12.2-14.9) H 01/14/17 22:04 INR 1.25 (0.87-1.13) H 01/14/17 22:04 Abnormal lab findings: Abnormal Labs 01/15/17 01/15/17 01/15/17 00:15 00:15 00:54 RBC Hgb Hct MCV MCH Lymph % (Auto) Lymph # Seg Neutrophils % POC ABG pCO2 POC ABG pO2 Sodium 131 L D Potassium Chloride 84.5 L Carbon Dioxide 2 L* BUN 44 H Creatinine 2.0 H Glucose 739 H* POC Glucose > 500 H Lactic Acid Calcium 7.7 L Phosphorus 5.7 H Magnesium Total Protein Albumin Urine WBC (Auto) 01/15/17 01/15/17 01/15/17 01:59 03:11 04:30 RBC Hgb Hct MCV MCH Lymph % (Auto) Lymph # Seg Neutrophils % POC ABG pCO2 POC ABG pO2 Sodium Potassium 3.3 L D Chloride 90.9 L Carbon Dioxide 5 L* BUN 39 H Creatinine 1.9 H Glucose 512 H* POC Glucose > 500 H > 500 H Lactic Acid Calcium 7.1 L Phosphorus Magnesium Total Protein Albumin Urine WBC (Auto) 01/15/17 01/15/17 01/15/17 04:52 05:58 06:59 RBC Hgb Hct MCV MCH Lymph % (Auto) Lymph # Seg Neutrophils % POC ABG pCO2 POC ABG pO2 Sodium Potassium 3.3 L Chloride Carbon Dioxide 9 L* BUN 38 H Creatinine 2.0 H Glucose 289 H POC Glucose 461 H 360 H Lactic Acid Calcium 7.4 L Phosphorus Magnesium Total Protein Albumin Urine WBC (Auto) 01/15/17 01/15/17 01/15/17 07:35 07:48 08:53 RBC Hgb Hct MCV MCH Lymph % (Auto) Lymph # Seg Neutrophils % POC ABG pCO2 POC ABG pO2 Sodium Potassium Chloride Carbon Dioxide BUN Creatinine Glucose POC Glucose 227 H 239 H 181 H Lactic Acid Calcium Phosphorus Magnesium Total Protein Albumin Urine WBC (Auto) 01/15/17 01/15/17 01/15/17 09:05 09:59 10:57 RBC Hgb Hct MCV MCH Lymph % (Auto) Lymph # Seg Neutrophils % POC ABG pCO2 POC ABG pO2 Sodium Potassium Chloride Carbon Dioxide BUN Creatinine Glucose POC Glucose 148 H 113 H Lactic Acid 9.4 H* Calcium Phosphorus Magnesium Total Protein Albumin Urine WBC (Auto) 01/15/17 01/15/17 01/15/17 11:48 11:52 12:30 RBC Hgb Hct MCV MCH Lymph % (Auto) Lymph # Seg Neutrophils % POC ABG pCO2 33.0 L POC ABG pO2 163 H Sodium Potassium Chloride Carbon Dioxide BUN Creatinine Glucose POC Glucose 118 H Lactic Acid Calcium Phosphorus Magnesium Total Protein Albumin Urine WBC (Auto) > 182.0 H 01/15/17 01/15/17 01/15/17 13:15 13:31 13:58 RBC Hgb Hct MCV MCH Lymph % (Auto) Lymph # Seg Neutrophils % POC ABG pCO2 POC ABG pO2 Sodium Potassium Chloride Carbon Dioxide BUN Creatinine Glucose POC Glucose 131 H 116 H Lactic Acid 6.2 H* Calcium Phosphorus Magnesium Total Protein Albumin Urine WBC (Auto) 01/15/17 01/15/17 01/15/17 15:11 15:20 17:49 RBC Hgb Hct MCV MCH Lymph % (Auto) Lymph # Seg Neutrophils % POC ABG pCO2 POC ABG pO2 Sodium Potassium Chloride 109.0 H Carbon Dioxide 20 L D BUN 32 H Creatinine 1.6 H Glucose 110 H POC Glucose 110 H 136 H Lactic Acid Calcium 6.7 L Phosphorus Magnesium Total Protein Albumin Urine WBC (Auto) 01/15/17 01/15/17 01/15/17 19:42 20:18 21:14 RBC Hgb Hct MCV MCH Lymph % (Auto) Lymph # Seg Neutrophils % POC ABG pCO2 POC ABG pO2 Sodium Potassium Chloride Carbon Dioxide BUN Creatinine Glucose POC Glucose 186 H 161 H 129 H Lactic Acid Calcium Phosphorus Magnesium Total Protein Albumin Urine WBC (Auto) 01/15/17 01/15/17 01/15/17 21:58 22:30 23:08 RBC Hgb Hct MCV MCH Lymph % (Auto) Lymph # Seg Neutrophils % POC ABG pCO2 POC ABG pO2 Sodium Potassium Chloride 111.0 H Carbon Dioxide 19 L BUN 29 H Creatinine 1.3 H Glucose 114 H POC Glucose 145 H 122 H Lactic Acid Calcium 6.7 L Phosphorus Magnesium Total Protein Albumin Urine WBC (Auto) 01/16/17 01/16/17 01/16/17 01:00 01:00 04:00 RBC 3.21 L Hgb 8.8 L Hct 30.1 L MCV 98 H MCH 27 L Lymph % (Auto) 6.3 L Lymph # 0.4 L Seg Neutrophils % 86.9 H POC ABG pCO2 POC ABG pO2 Sodium Potassium Chloride 109.8 H Carbon Dioxide 19 L BUN 28 H Creatinine Glucose 109 H POC Glucose Lactic Acid 4.5 H* Calcium 6.7 L Phosphorus Magnesium Total Protein Albumin Urine WBC (Auto) 01/16/17 01/16/17 04:00 11:34 RBC Hgb Hct MCV MCH Lymph % (Auto) Lymph # Seg Neutrophils % POC ABG pCO2 POC ABG pO2 Sodium Potassium Chloride 109.9 H Carbon Dioxide 19 L BUN 27 H Creatinine Glucose 287 H POC Glucose 278 H Lactic Acid Calcium 6.8 L Phosphorus 1.1 L D Magnesium 1.3 L Total Protein 4.6 L Albumin 2.4 L Urine WBC (Auto) Chest x-ray: report reviewed, image reviewed (clear)
--- NOTE | 2017-01-16 17:28 | Progress Note ---
Assessment and Plan Assessment and plan: 1. DKA - pH 6.8, bicarbonate 2 on admission; started on insulin drip, IV fluids and electrolytes replacement protocol; AG closed and insulin drip discontinued overnight; only SSI initiated; will add long acting insulin and start diet 2. Sepsis - lactic acid elevated; UA, urine culture, blood cultures obtained and started on broad-spectrum antibiotics; C. difficile positive today; start metronidazole; continue the other antibiotics until cultures negative 3. Shock - septic and hypovolemic; antibiotics + metronidazole, aggressive hydration, vasodepressors which have not been weaned off 4. C diff colitis - start Flagyl 5. Acute renal failure -due to vasomotor nephropathy versus ATN from hypotension; improved with IV fluids; continue to monitor renal function and electrolytes 6. Severe acidosis - metabolic/lactic; treat underlying conditions; improving 7. Pseudohyponatremia - corrected 8. Acute metabolic encephalopathy - due to all of the above 9. DVT/GI prophylaxis - Lovenox switched to heparin subcutaneous due to renal impairment The high probability of a clinically significant, sudden or life threatening deterioration of the [] system(s) required my full and direct attention, intervention and personal management. The aggregate critical care time was [32] minutes. This time is in addition to time spent performing reported procedures but includes the following: [x] Data Review and interpretation [x] Patient assessment and monitoring of vital signs [x] Documentation [x] Medication orders and management History Interval history: better, more alert, off pressors, AG closed and insulin drip stopped during the night Hospitalist Physical - Constitutional Vitals: Temp Pulse Resp BP Pulse Ox 987.6 F H 106 H 17 153/97 100 01/16/17 11:47 01/16/17 11:30 01/16/17 11:30 01/16/17 11:30 01/16/17 11:30 General appearance: Present: no acute distress - EENT Eyes: Present: PERRL, EOM intact. Absent: scleral icterus, conjunctival injection - Neck Neck: Present: supple, normal ROM. Absent: masses or JVD - Respiratory Respiratory: bilateral: CTA, negative: rales, rhonchi, wheezing - Cardiovascular Rhythm: other (tachycardia) Heart Sounds: Present: S1 & S2. Absent: systolic murmur - Extremities Extremities: no ischemia - Abdominal General gastrointestinal: soft, non-tender, non-distended, normal bowel sounds - Integumentary Integumentary: Present: warm, dry. Absent: jaundice, rash - Psychiatric Psychiatric: cooperative - Neurologic Neurologic: moves all extremities Results - Labs CBC & Chem 7: 01/16/17 04:00 01/16/17 04:00 Labs: Laboratory Last Values WBC 5.6 K/mm3 (4.5-11.0) 01/16/17 04:00 RBC 3.21 M/mm3 (3.65-5.03) L 01/16/17 04:00 Hgb 8.8 gm/dl (10.1-14.3) L 01/16/17 04:00 Hct 30.1 % (30.3-42.9) L 01/16/17 04:00 MCV 98 fl (79-97) H 01/16/17 04:00 MCH 27 pg (28-32) L 01/16/17 04:00 MCHC 32 % (30-34) 01/16/17 04:00 RDW 14.0 % (13.2-15.2) 01/16/17 04:00 Plt Count 177 K/mm3 (140-440) 01/16/17 04:00 Lymph % (Auto) 6.3 % (13.4-35.0) L 01/16/17 04:00 Wirt % (Auto) 6.6 % (0.0-7.3) 01/16/17 04:00 Eos % (Auto) 0.1 % (0.0-4.3) 01/16/17 04:00 Baso % (Auto) 0.1 % (0.0-1.8) 01/16/17 04:00 Lymph # 0.4 K/mm3 (1.2-5.4) L 01/16/17 04:00 Wirt # 0.4 K/mm3 (0.0-0.8) 01/16/17 04:00 Eos # 0.0 K/mm3 (0.0-0.4) 01/16/17 04:00 Baso # 0.0 K/mm3 (0.0-0.1) 01/16/17 04:00 Seg Neutrophils % 86.9 % (40.0-70.0) H 01/16/17 04:00 Seg Neutrophils # 4.9 K/mm3 (1.8-7.7) 01/16/17 04:00 PT 15.6 Sec. (12.2-14.9) H 01/14/17 22:04 INR 1.25 (0.87-1.13) H 01/14/17 22:04 APTT 24.3 Sec. (24.2-36.6) 01/14/17 22:04 POC ABG pH 7.350 (7.35-7.45) 01/15/17 11:52 POC ABG pCO2 33.0 (35-45) L 01/15/17 11:52 POC ABG pO2 163 (80-105) H 01/15/17 11:52 POC ABG HCO3 18.2 01/15/17 11:52 POC ABG Total CO2 19 01/15/17 11:52 POC ABG O2 Sat 99 01/15/17 11:52 POC ABG Base Excess -7 01/15/17 11:52 VBG pH 6.857 (7.320-7.420) L* 01/14/17 22:04 FiO2 1 % 01/15/17 11:52 Sodium 141 mmol/L (137-145) 01/16/17 04:00 Potassium 5.0 mmol/L (3.6-5.0) 01/16/17 04:00 Chloride 109.9 mmol/L (98-107) H 01/16/17 04:00 Carbon Dioxide 19 mmol/L (22-30) L 01/16/17 04:00 Anion Gap 17 mmol/L 01/16/17 04:00 BUN 27 mg/dL (7-17) H 01/16/17 04:00 Creatinine 1.1 mg/dL (0.7-1.2) 01/16/17 04:00 Estimated GFR > 60 ml/min 01/16/17 04:00 BUN/Creatinine Ratio 24.54 % 01/16/17 04:00 Glucose 287 mg/dL (65-100) H 01/16/17 04:00 POC Glucose 278 (70-105) H 01/16/17 11:34 Lactic Acid 4.5 mmol/L (0.7-2.0) H* 01/16/17 01:00 Calcium 6.8 mg/dL (8.4-10.2) L 01/16/17 04:00 Phosphorus 1.1 mg/dL (2.5-4.5) L D 01/16/17 04:00 Magnesium 1.3 mg/dL (1.7-2.3) L 01/16/17 04:00 Total Bilirubin 0.2 mg/dL (0.1-1.2) 01/16/17 04:00 AST 34 units/L (5-40) 01/16/17 04:00 ALT 30 units/L (7-56) 01/16/17 04:00 Alkaline Phosphatase 75 units/L (35-129) 01/16/17 04:00 Total Creatine Kinase 120 units/L (30-135) 01/14/17 22:04 CK-MB (CK-2) 3.6 ng/mL (0.0-4.0) 01/14/17 22:04 CK-MB (CK-2) Rel Index 3.0 (0-4) 01/14/17 22:04 Troponin T < 0.010 ng/mL (0.00-0.029) 01/14/17 22:04 NT-Pro-B Natriuret Pep 768.5 pg/mL (0-900) 01/14/17 22:04 Total Protein 4.6 g/dL (6.3-8.2) L 01/16/17 04:00 Albumin 2.4 g/dL (3.9-5) L 01/16/17 04:00 Albumin/Globulin Ratio 1.1 % 01/16/17 04:00 Urine Color Yellow (Yellow) 01/15/17 12:30 Urine Turbidity Turbid (Clear) 01/15/17 12:30 Urine pH 5.0 (5.0-7.0) 01/15/17 12:30 Ur Specific Wilder 1.016 (1.003-1.030) 01/15/17 12:30 Urine Protein 30 mg/dl mg/dL (Negative) 01/15/17 12:30 Urine Glucose (UA) Neg mg/dL (Negative) 01/15/17 12:30 Urine Ketones 20 mg/dL (Negative) 01/15/17 12:30 Urine Blood Mod (Negative) 01/15/17 12:30 Urine Nitrite Neg (Negative) 01/15/17 12:30 Urine Bilirubin Neg (Negative) 01/15/17 12:30 Urine Urobilinogen < 2.0 mg/dL (<2.0) 01/15/17 12:30 Ur Leukocyte Esterase Lg (Negative) 01/15/17 12:30 Urine WBC (Auto) > 182.0 /HPF (0.0-6.0) H 01/15/17 12:30 Urine RBC (Auto) 39.0 /HPF (0.0-6.0) 01/15/17 12:30 U Epithel Cells (Auto) 4.0 /HPF (0-13.0) 01/15/17 12:30 Urine Bacteria (Auto) 1+ /HPF (Negative) 01/15/17 12:30 Urine Mucus Few /HPF 01/15/17 12:30 Urine Opiates Screen Presumptive negative 01/15/17 12:30 Urine Methadone Screen Presumptive negative 01/15/17 12:30 Ur Barbiturates Screen Presumptive negative 01/15/17 12:30 Ur Phencyclidine Scrn Presumptive negative 01/15/17 12:30 Ur Amphetamines Screen Presumptive negative 01/15/17 12:30 U Benzodiazepines Scrn Presumptive negative 01/15/17 12:30 Urine Cocaine Screen Presumptive negative 01/15/17 12:30 U Marijuana (THC) Screen Presumptive negative 01/15/17 12:30 Drugs of Abuse Note Disclamer 01/15/17 12:30 Plasma/Serum Alcohol < 0.01 gm% (0-0.07) 01/14/17 22:04 Ketones 141.4 mg/dL (0.2-2.8) H 01/14/17 22:04
[2017-01-16] MEDS: FLAGYL PO SCH ×2 (18:05→22:30)
[2017-01-17] MEDS: TYLENOL PO PRN (00:51)
[2017-01-17] MEDS: APRESOLINE IV PRN ×3 (00:52→21:24)
[2017-01-17] MEDS: D5/0.45NS 1,000 ML IV SCH ×2 (02:27→11:20)
[2017-01-17] MEDS: FLAGYL PO SCH ×3 (06:11→21:24)
[2017-01-17] MEDS: HEPARIN SUB-Q SCH ×3 (06:12→21:25)
[2017-01-17 06:27] LABS: Basophils % (Auto) 0.3 % (0.0-1.8); Eosinophils % (Auto) 0.6 % (0.0-4.3); Hemoglobin 9.2 gm/dl (10.1-14.3); Mean Corpuscular HGB Conc 33 % (30-34); Mean Corpuscular Hemoglobin 28 pg (28-32); Mean Corpuscular Volume 85 fl (79-97); Platelet Count 158 K/mm3 (140-440); Red Blood Count 3.31 M/mm3 (3.65-5.03); Red Cell Distribution Width 14.2 % (13.2-15.2); White Blood Count 4.8 K/mm3 (4.5-11.0)
[2017-01-17 06:46] LABS: Anion Gap 19 mmol/L; BUN/Creatinine Ratio 13.63; Blood Urea Nitrogen 15 mg/dL (7-17); Calcium 7.1 mg/dL (8.4-10.2); Carbon Dioxide 18 mmol/L (22-30); Chloride 104.1 mmol/L (98-107); Glucose 113 mg/dL (65-100); Potassium 3.7 mmol/L (3.6-5.0); Sodium 137 mmol/L (137-145)
[2017-01-17 07:06] LABS: Magnesium 2.1 mg/dL (1.7-2.3); Phosphorous 2.2 mg/dL (2.5-4.5)
[2017-01-17] MEDS: VANCOMYCIN/NS 1 GM/250 ML 1 GM/250 ML BAG IV SCH (09:20)
[2017-01-17] MEDS: MAXIPIME/NS 1 GM/100 ML 1 GM/100 ML BAG IV SCH (09:25)
[2017-01-17] MEDS: LEVAQUIN 750MG/150ML 750 MG/150 ML BAG IV SCH (09:26)
[2017-01-17] MEDS: PEPCID PO SCH ×2 (09:31→21:24)
--- NOTE | 2017-01-17 11:57 | Progress Note ---
Assessment and Plan Imp: 1. DKA 2. Sepsis 3. ? UTI 4. Hypovolemic/septic shock, resolved 5. Lactic acidosis, improving 6. BRIGIDA, better 7. Cdiff colitis Rec: 1. Reduced IVFs; give extra phos 2. Flagyl PO; stop Vanco and Cefipime and continue Levaquin until urine culture returns, but would stop if negative 3. PT/OT, OOB if able; may need GERRY 4. DVT PPx 5. Lactic acid still elevated but much improved; recheck in AM; however, believe patient can go to med-surg with remote telemetry 6. Complex decision-making/patient No family present Subjective Date of service: 01/17/17 Principal diagnosis: DKA, Sepsis Interval history: Off pressors. BP stable. More alert. Weak-appearing. RN having to feed her. C/o lower abdominal pain. No N/V, SOB. Active Medications Acetaminophen (Tylenol) 650 mg PO Q6H PRN PRN Reason: Pain Last Admin: 01/17/17 00:51 Dose: 650 mg Al Hydrox/Mg Hydrox/Simethicone (Alum-Mag Hydrox-Simeth [id number]/5ml) 30 ml PO Q4H PRN PRN Reason: Indigestion Bisacodyl (Dulcolax) 10 mg CO QDAY PRN PRN Reason: constipation unrelieved by MOM Dextrose (D50w (25gm)) 0 ml IV ONCE PRN PRN Reason: Hypoglycemia Famotidine (Pepcid) 20 mg PO BID [facility] Last Admin: 01/17/17 09:31 Dose: 20 mg Heparin Sodium (Porcine) (Heparin) 5,000 unit SUB-Q Q8HR [facility] Last Admin: 01/17/17 06:12 Dose: 5,000 unit Hydralazine HCl (Apresoline) 5 mg IV Q4HR PRN PRN Reason: SBP>150 Last Admin: 01/17/17 00:52 Dose: 5 mg Dextrose/Sodium Chloride (D5/0.45ns) 1,000 mls @ 50 mls/hr IV DIRECT [facility] Last Admin: 01/17/17 02:27 Dose: 125 mls/hr Sodium Phosphate 15 mmol/ (Sodium Chloride) 255 mls @ 125 mls/hr IV ONCE ONE Stop: 01/17/17 13:53 Insulin Human Isoph/Insulin Regular (Novolin 70/30) 10 unit SUB-Q BIDDIAB [facility] Last Admin: 01/17/17 08:14 Dose: 10 unit Insulin Human Regular (Novolin R) 0 units SUB-Q Q6HR RUBIO PRN Reason: Protocol Last Admin: 01/17/17 00:41 Dose: Not Given Levofloxacin (Levaquin) 250 mg PO Q24HR RUBIO Metronidazole (Flagyl) 500 mg PO Q8HR [facility] Last Admin: 01/17/17 06:11 Dose: 500 mg Ondansetron HCl (Zofran) 4 mg IV Q8H PRN PRN Reason: N/V unrelieved by Mikala Objective Vital Signs - 12hr 01/17/17 01/17/17 01/17/17 00:00 00:11 00:21 Temperature 98.2 F Pulse Rate 110 H 109 H 114 H Pulse Rate [ 110 H From Monitor] Pulse Rate [ 110 H Radial] Respiratory 16 16 22 Rate Blood Pressure 183/114 183/114 192/121 O2 Sat by Pulse 100 100 100 Oximetry 01/17/17 01/17/17 01/17/17 00:30 00:41 00:51 Temperature Pulse Rate 106 H 109 H 111 H Pulse Rate [ From Monitor] Pulse Rate [ Radial] Respiratory 20 17 26 H Rate Blood Pressure 188/117 188/117 186/115 O2 Sat by Pulse 100 100 100 Oximetry 01/17/17 01/17/17 01/17/17 00:52 01:01 01:11 Temperature Pulse Rate 115 H 108 H 112 H Pulse Rate [ From Monitor] Pulse Rate [ Radial] Respiratory 20 17 Rate Blood Pressure 186/115 159/89 159/89 O2 Sat by Pulse 100 100 Oximetry 01/17/17 01/17/17 01/17/17 01:21 01:30 01:40 Temperature Pulse Rate 112 H 113 H 114 H Pulse Rate [ From Monitor] Pulse Rate [ Radial] Respiratory 18 18 18 Rate Blood Pressure 159/89 158/92 158/92 O2 Sat by Pulse 100 100 100 Oximetry 01/17/17 01/17/17 01/17/17 01:51 02:00 02:11 Temperature Pulse Rate 114 H 114 H 113 H Pulse Rate [ From Monitor] Pulse Rate [ Radial] Respiratory 16 20 17 Rate Blood Pressure 158/92 156/91 156/91 O2 Sat by Pulse 100 100 99 Oximetry 01/17/17 01/17/17 01/17/17 02:21 02:30 02:41 Temperature Pulse Rate 114 H 110 H 111 H Pulse Rate [ From Monitor] Pulse Rate [ Radial] Respiratory 20 18 16 Rate Blood Pressure 156/91 159/95 159/95 O2 Sat by Pulse 100 99 100 Oximetry 01/17/17 01/17/17 01/17/17 02:51 03:00 03:11 Temperature Pulse Rate 111 H 109 H 111 H Pulse Rate [ From Monitor] Pulse Rate [ Radial] Respiratory 15 16 15 Rate Blood Pressure 158/92 155/91 155/91 O2 Sat by Pulse 100 100 99 Oximetry 01/17/17 01/17/17 01/17/17 03:21 03:30 03:41 Temperature Pulse Rate 109 H 109 H 109 H Pulse Rate [ From Monitor] Pulse Rate [ Radial] Respiratory 15 16 16 Rate Blood Pressure 166/91 159/92 159/92 O2 Sat by Pulse 100 100 100 Oximetry 01/17/17 01/17/17 01/17/17 03:51 04:00 04:11 Temperature 99.2 F Pulse Rate 110 H 120 H 114 H Pulse Rate [ 100 H From Monitor] Pulse Rate [ 100 H Radial] Respiratory 16 23 18 Rate Blood Pressure 163/92 162/90 162/90 O2 Sat by Pulse 100 100 100 Oximetry 01/17/17 01/17/17 01/17/17 04:21 04:30 04:41 Temperature Pulse Rate 106 H 112 H 107 H Pulse Rate [ From Monitor] Pulse Rate [ Radial] Respiratory 18 20 17 Rate Blood Pressure 157/94 147/96 147/96 O2 Sat by Pulse 100 99 100 Oximetry 01/17/17 01/17/17 01/17/17 04:51 05:00 05:11 Temperature Pulse Rate 106 H 108 H 109 H Pulse Rate [ From Monitor] Pulse Rate [ Radial] Respiratory 15 15 14 Rate Blood Pressure 158/92 167/95 167/95 O2 Sat by Pulse 100 100 100 Oximetry 01/17/17 01/17/17 01/17/17 05:21 05:30 05:41 Temperature Pulse Rate 109 H 105 H 105 H Pulse Rate [ From Monitor] Pulse Rate [ Radial] Respiratory 15 14 16 Rate Blood Pressure 167/107 167/102 167/102 O2 Sat by Pulse 100 100 100 Oximetry 03/0801/17/17 01/17/17 05:51 06:00 06:11 Temperature Pulse Rate 109 H 111 H 116 H Pulse Rate [ From Monitor] Pulse Rate [ Radial] Respiratory 16 17 17 Rate Blood Pressure 169/104 159/98 159/98 O2 Sat by Pulse 100 100 100 Oximetry 01/17/17 01/17/17 01/17/17 06:21 06:30 06:41 Temperature Pulse Rate 116 H 111 H 112 H Pulse Rate [ From Monitor] Pulse Rate [ Radial] Respiratory 22 17 18 Rate Blood Pressure 155/81 146/77 146/77 O2 Sat by Pulse 98 99 99 Oximetry 01/17/17 01/17/17 01/17/17 06:51 07:00 07:11 Temperature Pulse Rate 111 H 110 H 110 H Pulse Rate [ From Monitor] Pulse Rate [ Radial] Respiratory 17 18 20 Rate Blood Pressure 139/78 141/80 141/80 O2 Sat by Pulse 99 99 99 Oximetry 01/17/17 01/17/17 01/17/17 07:21 07:30 07:41 Temperature Pulse Rate 109 H 111 H 110 H Pulse Rate [ From Monitor] Pulse Rate [ Radial] Respiratory 17 17 20 Rate Blood Pressure 142/64 142/81 142/81 O2 Sat by Pulse 99 99 99 Oximetry 01/17/17 01/17/17 01/17/17 07:51 08:00 08:11 Temperature 97.9 F Pulse Rate 114 H 110 H 118 H Pulse Rate [ From Monitor] Pulse Rate [ Radial] Respiratory 17 18 20 Rate Blood Pressure 137/83 131/77 131/77 O2 Sat by Pulse 99 100 100 Oximetry 01/17/17 01/17/17 01/17/17 08:21 08:30 08:41 Temperature Pulse Rate 118 H 115 H 111 H Pulse Rate [ From Monitor] Pulse Rate [ Radial] Respiratory 21 18 17 Rate Blood Pressure 154/92 145/87 145/87 O2 Sat by Pulse 100 100 100 Oximetry 01/17/17 01/17/17 01/17/17 08:51 09:00 09:11 Temperature Pulse Rate 113 H 112 H 110 H Pulse Rate [ From Monitor] Pulse Rate [ Radial] Respiratory 19 19 18 Rate Blood Pressure 139/87 144/92 144/92 O2 Sat by Pulse 100 100 100 Oximetry 01/17/17 01/17/17 01/17/17 09:21 09:30 09:41 Temperature Pulse Rate 115 H 114 H 111 H Pulse Rate [ From Monitor] Pulse Rate [ Radial] Respiratory 18 27 H 19 Rate Blood Pressure 151/91 159/98 159/98 O2 Sat by Pulse 100 100 100 Oximetry 01/17/17 01/17/17 09:50 10:00 Temperature Pulse Rate 116 H 109 H Pulse Rate [ From Monitor] Pulse Rate [ Radial] Respiratory 18 15 Rate Blood Pressure 154/97 162/99 O2 Sat by Pulse 100 100 Oximetry Constitutional: no acute distress, alert (awake, answers questions), other (weak -appearing) Eyes: non-icteric ENT: oropharynx moist Neck: supple Effort: normal Ascultation: Bilateral: clear Cardiovascular: regular rate and rhythm (no mrg) Gastrointestinal: normoactive bowel sounds, soft, non-tender, non-distended Integumentary: normal Extremities: no cyanosis, no edema, pink and warm Neurologic: normal mental status, non-focal exam, pupils equal and round, CN II- XII normal Psychiatric: mood appropriate, affect normal CBC and BMP: 01/17/17 05:00 01/17/17 05:00 ABG, PT/INR, D-dimer: ABG POC ABG pH 7.350 (7.35-7.45) 01/15/17 11:52 POC ABG pCO2 33.0 (35-45) L 01/15/17 11:52 POC ABG pO2 163 (80-105) H 01/15/17 11:52 POC ABG HCO3 18.2 01/15/17 11:52 POC ABG Total CO2 19 01/15/17 11:52 POC ABG O2 Sat 99 01/15/17 11:52 PT/INR, D-dimer PT 15.6 Sec. (12.2-14.9) H 01/14/17 22:04 INR 1.25 (0.87-1.13) H 01/14/17 22:04 Abnormal lab findings: Abnormal Labs 01/15/17 01/15/17 01/15/17 00:15 00:15 00:54 RBC Hgb Hct MCV MCH Lymph % (Auto) [place] % (Auto) Lymph # Seg Neutrophils % POC ABG pCO2 POC ABG pO2 Sodium 131 L D Potassium Chloride 84.5 L Carbon Dioxide 2 L* BUN 44 H Creatinine 2.0 H Glucose 739 H* POC Glucose > 500 H Lactic Acid Calcium 7.7 L Phosphorus 5.7 H Magnesium Total Protein Albumin Urine WBC (Auto) 01/15/17 01/15/17 01/15/17 01:59 03:11 04:30 RBC Hgb Hct MCV MCH Lymph % (Auto) [place] % (Auto) Lymph # Seg Neutrophils % POC ABG pCO2 POC ABG pO2 Sodium Potassium 3.3 L D Chloride 90.9 L Carbon Dioxide 5 L* BUN 39 H Creatinine 1.9 H Glucose 512 H* POC Glucose > 500 H > 500 H Lactic Acid Calcium 7.1 L Phosphorus Magnesium Total Protein Albumin Urine WBC (Auto) 01/15/17 01/15/17 01/15/17 04:52 05:58 06:59 RBC Hgb Hct MCV MCH Lymph % (Auto) [place] % (Auto) Lymph # Seg Neutrophils % POC ABG pCO2 POC ABG pO2 Sodium Potassium 3.3 L Chloride Carbon Dioxide 9 L* BUN 38 H Creatinine 2.0 H Glucose 289 H POC Glucose 461 H 360 H Lactic Acid Calcium 7.4 L Phosphorus Magnesium Total Protein Albumin Urine WBC (Auto) 01/15/17 01/15/17 01/15/17 07:35 07:48 08:53 RBC Hgb Hct MCV MCH Lymph % (Auto) [place] % (Auto) Lymph # Seg Neutrophils % POC ABG pCO2 POC ABG pO2 Sodium Potassium Chloride Carbon Dioxide BUN Creatinine Glucose POC Glucose 227 H 239 H 181 H Lactic Acid Calcium Phosphorus Magnesium Total Protein Albumin Urine WBC (Auto) 01/15/17 01/15/17 01/15/17 09:05 09:59 10:57 RBC Hgb Hct MCV MCH Lymph % (Auto) [place] % (Auto) Lymph # Seg Neutrophils % POC ABG pCO2 POC ABG pO2 Sodium Potassium Chloride Carbon Dioxide BUN Creatinine Glucose POC Glucose 148 H 113 H Lactic Acid 9.4 H* Calcium Phosphorus Magnesium Total Protein Albumin Urine WBC (Auto) 01/15/17 01/15/17 01/15/17 11:48 11:52 12:30 RBC Hgb Hct MCV MCH Lymph % (Auto) [place] % (Auto) Lymph # Seg Neutrophils % POC ABG pCO2 33.0 L POC ABG pO2 163 H Sodium Potassium Chloride Carbon Dioxide BUN Creatinine Glucose POC Glucose 118 H Lactic Acid Calcium Phosphorus Magnesium Total Protein Albumin Urine WBC (Auto) > 182.0 H 03/04/2801/15/17 01/15/17 13:15 13:31 13:58 RBC Hgb Hct MCV MCH Lymph % (Auto) [place] % (Auto) Lymph # Seg Neutrophils % POC ABG pCO2 POC ABG pO2 Sodium Potassium Chloride Carbon Dioxide BUN Creatinine Glucose POC Glucose 131 H 116 H Lactic Acid 6.2 H* Calcium Phosphorus Magnesium Total Protein Albumin Urine WBC (Auto) 01/15/17 01/15/17 01/15/17 15:11 15:20 17:49 RBC Hgb Hct MCV MCH Lymph % (Auto) [place] % (Auto) Lymph # Seg Neutrophils % POC ABG pCO2 POC ABG pO2 Sodium Potassium Chloride 109.0 H Carbon Dioxide 20 L D BUN 32 H Creatinine 1.6 H Glucose 110 H POC Glucose 110 H 136 H Lactic Acid Calcium 6.7 L Phosphorus Magnesium Total Protein Albumin Urine WBC (Auto) 01/15/17 01/15/17 01/15/17 19:42 20:18 21:14 RBC Hgb Hct MCV MCH Lymph % (Auto) [place] % (Auto) Lymph # Seg Neutrophils % POC ABG pCO2 POC ABG pO2 Sodium Potassium Chloride Carbon Dioxide BUN Creatinine Glucose POC Glucose 186 H 161 H 129 H Lactic Acid Calcium Phosphorus Magnesium Total Protein Albumin Urine WBC (Auto) 01/15/17 01/15/17 01/15/17 21:58 22:30 23:08 RBC Hgb Hct MCV MCH Lymph % (Auto) [place] % (Auto) Lymph # Seg Neutrophils % POC ABG pCO2 POC ABG pO2 Sodium Potassium Chloride 111.0 H Carbon Dioxide 19 L BUN 29 H Creatinine 1.3 H Glucose 114 H POC Glucose 145 H 122 H Lactic Acid Calcium 6.7 L Phosphorus Magnesium Total Protein Albumin Urine WBC (Auto) 01/16/17 01/16/17 01/16/17 01:00 01:00 04:00 RBC 3.21 L Hgb 8.8 L Hct 30.1 L MCV 98 H MCH 27 L Lymph % (Auto) 6.3 L [place] % (Auto) Lymph # 0.4 L Seg Neutrophils % 86.9 H POC ABG pCO2 POC ABG pO2 Sodium Potassium Chloride 109.8 H Carbon Dioxide 19 L BUN 28 H Creatinine Glucose 109 H POC Glucose Lactic Acid 4.5 H* Calcium 6.7 L Phosphorus Magnesium Total Protein Albumin Urine WBC (Auto) 01/16/17 01/16/17 01/16/17 04:00 11:34 17:39 RBC Hgb Hct MCV MCH Lymph % (Auto) [place] % (Auto) Lymph # Seg Neutrophils % POC ABG pCO2 POC ABG pO2 Sodium Potassium Chloride 109.9 H Carbon Dioxide 19 L BUN 27 H Creatinine Glucose 287 H POC Glucose 278 H 161 H Lactic Acid Calcium 6.8 L Phosphorus 1.1 L D Magnesium 1.3 L Total Protein 4.6 L Albumin 2.4 L Urine WBC (Auto) 01/17/17 01/17/17 01/17/17 00:18 05:00 05:00 RBC 3.31 L Hgb 9.2 L Hct 28.0 L MCV MCH Lymph % (Auto) [place] % (Auto) 8.7 H Lymph # 0.8 L Seg Neutrophils % 74.2 H POC ABG pCO2 POC ABG pO2 Sodium Potassium Chloride Carbon Dioxide BUN Creatinine Glucose POC Glucose 118 H Lactic Acid Calcium Phosphorus 2.2 L D Magnesium Total Protein Albumin Urine WBC (Auto) 01/17/17 01/17/17 05:00 05:00 RBC Hgb Hct MCV MCH Lymph % (Auto) [place] % (Auto) Lymph # Seg Neutrophils % POC ABG pCO2 POC ABG pO2 Sodium Potassium Chloride Carbon Dioxide 18 L BUN Creatinine Glucose 113 H POC Glucose Lactic Acid 3.8 H* Calcium 7.1 L Phosphorus Magnesium Total Protein Albumin Urine WBC (Auto) Chest x-ray: report reviewed, image reviewed
[2017-01-17] MEDS ORDERED: SODIUM PHOSPHATE 15 MMOL in NACL 0.9% 250ML 250 ML IV ONE (13:30)
--- NOTE | 2017-01-17 16:56 | Progress Note ---
Assessment and Plan Assessment and plan: 1. DKA - pH 6.8, bicarbonate 2 on admission; admitted to ICU, started on insulin drip, IV fluids and electrolytes replacement protocol; AG closed and insulin drip discontinued yesterday; transitioned to long-acting subcutaneous insulin along with SSI to assess requirements 2. Sepsis - lactic acid elevated; UA, urine culture, blood cultures obtained and started on broad-spectrum antibiotics;, then C. difficile positive 01/16; started on metronidazole; UA positive, but urine and blood cultures negative to date; discontinue Vanc and cefepime, continue levofloxacin 3. Shock - septic and hypovolemic; antibiotics (as above)+ metronidazole, hydration; wean off of vasodepressors 4. C diff colitis - started on Flagyl 5. Acute renal failure -due to vasomotor nephropathy versus ATN from hypotension; resolved with IV fluids 6. Severe acidosis - metabolic/lactic; treat underlying conditions; improving 7. Pseudohyponatremia - corrected 8. Acute metabolic encephalopathy - due to all of the above 9. Deconditioning - consult PT 10. DVT - heparin subcutaneous History Interval history: better,alert, answering questions, but very weak, switched to pureed diet and nurse had to feed her Hospitalist Physical - Constitutional Vitals: Temp Pulse Resp BP Pulse Ox 97.9 F 113 H 21 165/91 100 01/17/17 08:00 01/17/17 16:00 01/17/17 16:00 01/17/17 16:00 01/17/17 16:00 General appearance: Present: no acute distress - EENT Eyes: Present: PERRL, EOM intact. Absent: scleral icterus, conjunctival injection - Neck Neck: Present: supple, normal ROM. Absent: masses or JVD - Respiratory Respiratory effort: normal Respiratory: bilateral: CTA, negative: rhonchi, wheezing - Cardiovascular Rhythm: other (tachycardic) Heart Sounds: Present: S1 & S2. Absent: systolic murmur - Extremities Extremities: no ischemia - Abdominal General gastrointestinal: soft, tender, non-distended, normal bowel sounds Localized gastrointestinal: tender: suprapubic - Psychiatric Psychiatric: cooperative - Neurologic Neurologic: no focal deficits - Additional findings Additional findings: generalized weakness Results - Labs CBC & Chem 7: 01/17/17 05:00 01/17/17 05:00 Labs: Laboratory Last Values WBC 4.8 K/mm3 (4.5-11.0) 01/17/17 05:00 RBC 3.31 M/mm3 (3.65-5.03) L 01/17/17 05:00 Hgb 9.2 gm/dl (10.1-14.3) L 01/17/17 05:00 Hct 28.0 % (30.3-42.9) L 01/17/17 05:00 MCV 85 fl (79-97) D 01/17/17 05:00 MCH 28 pg (28-32) 01/17/17 05:00 MCHC 33 % (30-34) 01/17/17 05:00 RDW 14.2 % (13.2-15.2) 01/17/17 05:00 Plt Count 158 K/mm3 (140-440) 01/17/17 05:00 Lymph % (Auto) 16.2 % (13.4-35.0) 01/17/17 05:00 [place] % (Auto) 8.7 % (0.0-7.3) H 01/17/17 05:00 Eos % (Auto) 0.6 % (0.0-4.3) 01/17/17 05:00 Baso % (Auto) 0.3 % (0.0-1.8) 01/17/17 05:00 Lymph # 0.8 K/mm3 (1.2-5.4) L 01/17/17 05:00 [place] # 0.4 K/mm3 (0.0-0.8) 01/17/17 05:00 Eos # 0.0 K/mm3 (0.0-0.4) 01/17/17 05:00 Baso # 0.0 K/mm3 (0.0-0.1) 01/17/17 05:00 Seg Neutrophils % 74.2 % (40.0-70.0) H 01/17/17 05:00 Seg Neutrophils # 3.6 K/mm3 (1.8-7.7) 01/17/17 05:00 PT 15.6 Sec. (12.2-14.9) H 01/14/17 22:04 INR 1.25 (0.87-1.13) H 01/14/17 22:04 APTT 24.3 Sec. (24.2-36.6) 01/14/17 22:04 POC ABG pH 7.350 (7.35-7.45) 01/15/17 11:52 POC ABG pCO2 33.0 (35-45) L 01/15/17 11:52 POC ABG pO2 163 (80-105) H 01/15/17 11:52 POC ABG HCO3 18.2 01/15/17 11:52 POC ABG Total CO2 19 01/15/17 11:52 POC ABG O2 Sat 99 01/15/17 11:52 POC ABG Base Excess -7 01/15/17 11:52 VBG pH 6.857 (7.320-7.420) L* 01/14/17 22:04 FiO2 1 % 01/15/17 11:52 Sodium 137 mmol/L (137-145) 01/17/17 05:00 Potassium 3.7 mmol/L (3.6-5.0) D 01/17/17 05:00 Chloride 104.1 mmol/L (98-107) 01/17/17 05:00 Carbon Dioxide 18 mmol/L (22-30) L 01/17/17 05:00 Anion Gap 19 mmol/L 01/17/17 05:00 BUN 15 mg/dL (7-17) 01/17/17 05:00 Creatinine 1.1 mg/dL (0.7-1.2) 01/17/17 05:00 Estimated GFR > 60 ml/min 01/17/17 05:00 BUN/Creatinine Ratio 13.63 % 01/17/17 05:00 Glucose 113 mg/dL (65-100) H 01/17/17 05:00 POC Glucose 152 (70-105) H 01/17/17 16:31 Lactic Acid 3.8 mmol/L (0.7-2.0) H* 01/17/17 05:00 Calcium 7.1 mg/dL (8.4-10.2) L 01/17/17 05:00 Phosphorus 2.2 mg/dL (2.5-4.5) L D 01/17/17 05:00 Magnesium 2.1 mg/dL (1.7-2.3) 01/17/17 05:00 Total Bilirubin 0.2 mg/dL (0.1-1.2) 01/16/17 04:00 AST 34 units/L (5-40) 01/16/17 04:00 ALT 30 units/L (7-56) 01/16/17 04:00 Alkaline Phosphatase 75 units/L (35-129) 01/16/17 04:00 Total Creatine Kinase 120 units/L (30-135) 01/14/17 22:04 CK-MB (CK-2) 3.6 ng/mL (0.0-4.0) 01/14/17 22:04 CK-MB (CK-2) Rel Index 3.0 (0-4) 01/14/17 22:04 Troponin T < 0.010 ng/mL (0.00-0.029) 01/14/17 22:04 NT-Pro-B Natriuret Pep 768.5 pg/mL (0-900) 01/14/17 22:04 Total Protein 4.6 g/dL (6.3-8.2) L 01/16/17 04:00 Albumin 2.4 g/dL (3.9-5) L 01/16/17 04:00 Albumin/Globulin Ratio 1.1 % 01/16/17 04:00 Urine Color Yellow (Yellow) 01/15/17 12:30 Urine Turbidity Turbid (Clear) 01/15/17 12:30 Urine pH 5.0 (5.0-7.0) 01/15/17 12:30 Ur Specific [place] 1.016 (1.003-1.030) 01/15/17 12:30 Urine Protein 30 mg/dl mg/dL (Negative) 01/15/17 12:30 Urine Glucose (UA) Neg mg/dL (Negative) 01/15/17 12:30 Urine Ketones 20 mg/dL (Negative) 01/15/17 12:30 Urine Blood Mod (Negative) 01/15/17 12:30 Urine Nitrite Neg (Negative) 01/15/17 12:30 Urine Bilirubin Neg (Negative) 01/15/17 12:30 Urine Urobilinogen < 2.0 mg/dL (<2.0) 01/15/17 12:30 Ur Leukocyte Esterase Lg (Negative) 01/15/17 12:30 Urine WBC (Auto) > 182.0 /HPF (0.0-6.0) H 01/15/17 12:30 Urine RBC (Auto) 39.0 /HPF (0.0-6.0) 01/15/17 12:30 U Epithel Cells (Auto) 4.0 /HPF (0-13.0) 01/15/17 12:30 Urine Bacteria (Auto) 1+ /HPF (Negative) 01/15/17 12:30 Urine Mucus Few /HPF 01/15/17 12:30 Urine Opiates Screen Presumptive negative 01/15/17 12:30 Urine Methadone Screen Presumptive negative 01/15/17 12:30 Ur Barbiturates Screen Presumptive negative 01/15/17 12:30 Ur Phencyclidine Scrn Presumptive negative 01/15/17 12:30 Ur Amphetamines Screen Presumptive negative 01/15/17 12:30 U Benzodiazepines Scrn Presumptive negative 01/15/17 12:30 Urine Cocaine Screen Presumptive negative 01/15/17 12:30 U Marijuana (THC) Screen Presumptive negative 01/15/17 12:30 Drugs of Abuse Note Disclamer 01/15/17 12:30 Plasma/Serum Alcohol < 0.01 gm% (0-0.07) 01/14/17 22:04 Ketones 141.4 mg/dL (0.2-2.8) H 01/14/17 22:04
[2017-01-18] MEDS: D50W (25GM) IV PRN ×2 (00:53→03:15)
[2017-01-18] MEDS: D5/0.45NS 1,000 ML IV SCH (00:57)
[2017-01-18] MEDS: FLAGYL PO SCH ×3 (05:20→23:07)
[2017-01-18] MEDS: HEPARIN SUB-Q SCH ×3 (05:20→23:08)
[2017-01-18 06:21] LABS: Basophils % (Auto) 0.2 % (0.0-1.8); Eosinophils % (Auto) 2.2 % (0.0-4.3); Hematocrit 28.6 % (30.3-42.9); Hemoglobin 9.3 gm/dl (10.1-14.3); Mean Corpuscular HGB Conc 33 % (30-34); Mean Corpuscular Hemoglobin 28 pg (28-32); Mean Corpuscular Volume 85 fl (79-97); Platelet Count 161 K/mm3 (140-440); Red Blood Count 3.38 M/mm3 (3.65-5.03); Red Cell Distribution Width 14.2 % (13.2-15.2); White Blood Count 4.8 K/mm3 (4.5-11.0)
[2017-01-18 06:38] LABS: Anion Gap 16 mmol/L; BUN/Creatinine Ratio 12.22; Blood Urea Nitrogen 11 mg/dL (7-17); Calcium 7.5 mg/dL (8.4-10.2); Carbon Dioxide 20 mmol/L (22-30); Chloride 99.9 mmol/L (98-107); Glucose 90 mg/dL (65-100); Phosphorous 2.1 mg/dL (2.5-4.5); Potassium 3.5 mmol/L (3.6-5.0); Sodium 132 mmol/L (137-145)
[2017-01-18] MEDS: PEPCID PO SCH ×2 (10:23→23:08)
[2017-01-18] MEDS: LEVAQUIN PO SCH (10:23)
[2017-01-18] MEDS ORDERED: SODIUM PHOSPHATE 30 MMOL in NACL 0.9% 500 ML 500 ML IV ONE (13:06)
--- NOTE | 2017-01-18 13:09 | Progress Note ---
Assessment and Plan Imp: 1. DKA, resolved 2. Sepsis, better 3. Hypovolemic/septic shock, resolved 4. Lactic acidosis, improving 5. BRIGIDA, better 6. Cdiff colitis Rec: 1. Give extra phos again 2. Flagyl PO; Ucx neg x 48 hours; believe okay to stop Levaquin 3. PT/OT, OOB if able; may need GERRY 4. DVT PPx Plan of care reviewed w/ patient/family, they understand/agree Subjective Date of service: 01/18/17 Principal diagnosis: DKA, Sepsis Interval history: Alert, feeling better. Lower abd pain better. No N/V, SOB. Still not eating much. Active Medications Acetaminophen (Tylenol) 650 mg PO Q6H PRN PRN Reason: Pain Last Admin: 01/17/17 00:51 Dose: 650 mg Al Hydrox/Mg Hydrox/Simethicone (Alum-Mag Hydrox-Simeth [id number]/5ml) 30 ml PO Q4H PRN PRN Reason: Indigestion Bisacodyl (Dulcolax) 10 mg CO QDAY PRN PRN Reason: constipation unrelieved by MOM Dextrose (D50w (25gm)) 0 ml IV ONCE PRN PRN Reason: Hypoglycemia Last Admin: 01/18/17 03:15 Dose: 15 ml Famotidine (Pepcid) 20 mg PO BID [facility] Last Admin: 01/18/17 10:23 Dose: 20 mg Heparin Sodium (Porcine) (Heparin) 5,000 unit SUB-Q Q8HR [facility] Last Admin: 01/18/17 05:20 Dose: 5,000 unit Hydralazine HCl (Apresoline) 5 mg IV Q4HR PRN PRN Reason: SBP>150 Last Admin: 01/17/17 21:24 Dose: 5 mg Dextrose/Sodium Chloride (D5/0.45ns) 1,000 mls @ 50 mls/hr IV DIRECT [facility] Last Admin: 01/18/17 00:57 Dose: 125 mls/hr Sodium Phosphate 30 mmol/ (Sodium Chloride) 510 mls @ 125 mls/hr IV ONCE ONE Stop: 01/18/17 17:10 Insulin Human Isoph/Insulin Regular (Novolin 70/30) 10 unit SUB-Q BIDDIAB [facility] Last Admin: 01/18/17 10:22 Dose: 10 unit Insulin Human Regular (Novolin R) 0 units SUB-Q Q6HR [facility] PRN Reason: Protocol Last Admin: 01/18/17 10:24 Dose: Not Given Levofloxacin (Levaquin) 250 mg PO Q24HR [facility] Last Admin: 01/18/17 10:23 Dose: 250 mg Metronidazole (Flagyl) 500 mg PO Q8HR [facility] Last Admin: 01/18/17 05:20 Dose: 500 mg Ondansetron HCl (Zofran) 4 mg IV Q8H PRN PRN Reason: N/V unrelieved by Mikala Objective Vital Signs - 12hr 01/18/17 08:00 Temperature 98.6 F Pulse Rate [ 104 H Left Radial] Respiratory 16 Rate Blood Pressure 139/90 [Left Arm] O2 Sat by Pulse 100 Oximetry Constitutional: no acute distress, alert (awake, answers questions) Eyes: non-icteric ENT: oropharynx moist Neck: supple Effort: normal Ascultation: Bilateral: clear Cardiovascular: regular rate and rhythm (no mrg) Gastrointestinal: normoactive bowel sounds, soft, non-tender, non-distended Integumentary: normal Extremities: no cyanosis, no edema, pink and warm Neurologic: normal mental status, non-focal exam, pupils equal and round, CN II- XII normal Psychiatric: mood appropriate, affect normal CBC and BMP: 01/18/17 05:47 01/18/17 05:47 ABG, PT/INR, D-dimer: ABG POC ABG pH 7.350 (7.35-7.45) 01/15/17 11:52 POC ABG pCO2 33.0 (35-45) L 01/15/17 11:52 POC ABG pO2 163 (80-105) H 01/15/17 11:52 POC ABG HCO3 18.2 01/15/17 11:52 POC ABG Total CO2 19 01/15/17 11:52 POC ABG O2 Sat 99 01/15/17 11:52 PT/INR, D-dimer PT 15.6 Sec. (12.2-14.9) H 01/14/17 22:04 INR 1.25 (0.87-1.13) H 01/14/17 22:04 Abnormal lab findings: Abnormal Labs 01/15/17 01/15/17 01/15/17 00:15 00:15 00:54 RBC Hgb Hct MCV MCH Lymph % (Auto) [place] % (Auto) Lymph # Seg Neutrophils % POC ABG pCO2 POC ABG pO2 Sodium 131 L D Potassium Chloride 84.5 L Carbon Dioxide 2 L* BUN 44 H Creatinine 2.0 H Glucose 739 H* POC Glucose > 500 H Lactic Acid Calcium 7.7 L Phosphorus 5.7 H Magnesium Total Protein Albumin Urine WBC (Auto) 01/15/17 01/15/17 01/15/17 01:59 03:11 04:30 RBC Hgb Hct MCV MCH Lymph % (Auto) [place] % (Auto) Lymph # Seg Neutrophils % POC ABG pCO2 POC ABG pO2 Sodium Potassium 3.3 L D Chloride 90.9 L Carbon Dioxide 5 L* BUN 39 H Creatinine 1.9 H Glucose 512 H* POC Glucose > 500 H > 500 H Lactic Acid Calcium 7.1 L Phosphorus Magnesium Total Protein Albumin Urine WBC (Auto) 01/15/17 01/15/17 01/15/17 04:52 05:58 06:59 RBC Hgb Hct MCV MCH Lymph % (Auto) [place] % (Auto) Lymph # Seg Neutrophils % POC ABG pCO2 POC ABG pO2 Sodium Potassium 3.3 L Chloride Carbon Dioxide 9 L* BUN 38 H Creatinine 2.0 H Glucose 289 H POC Glucose 461 H 360 H Lactic Acid Calcium 7.4 L Phosphorus Magnesium Total Protein Albumin Urine WBC (Auto) 01/15/17 01/15/17 01/15/17 07:35 07:48 08:53 RBC Hgb Hct MCV MCH Lymph % (Auto) [place] % (Auto) Lymph # Seg Neutrophils % POC ABG pCO2 POC ABG pO2 Sodium Potassium Chloride Carbon Dioxide BUN Creatinine Glucose POC Glucose 227 H 239 H 181 H Lactic Acid Calcium Phosphorus Magnesium Total Protein Albumin Urine WBC (Auto) 01/15/17 01/15/17 01/15/17 09:05 09:59 10:57 RBC Hgb Hct MCV MCH Lymph % (Auto) [place] % (Auto) Lymph # Seg Neutrophils % POC ABG pCO2 POC ABG pO2 Sodium Potassium Chloride Carbon Dioxide BUN Creatinine Glucose POC Glucose 148 H 113 H Lactic Acid 9.4 H* Calcium Phosphorus Magnesium Total Protein Albumin Urine WBC (Auto) 01/15/17 01/15/17 01/15/17 11:48 11:52 12:30 RBC Hgb Hct MCV MCH Lymph % (Auto) [place] % (Auto) Lymph # Seg Neutrophils % POC ABG pCO2 33.0 L POC ABG pO2 163 H Sodium Potassium Chloride Carbon Dioxide BUN Creatinine Glucose POC Glucose 118 H Lactic Acid Calcium Phosphorus Magnesium Total Protein Albumin Urine WBC (Auto) > 182.0 H 01/15/17 01/15/17 01/15/17 13:15 13:31 13:58 RBC Hgb Hct MCV MCH Lymph % (Auto) [place] % (Auto) Lymph # Seg Neutrophils % POC ABG pCO2 POC ABG pO2 Sodium Potassium Chloride Carbon Dioxide BUN Creatinine Glucose POC Glucose 131 H 116 H Lactic Acid 6.2 H* Calcium Phosphorus Magnesium Total Protein Albumin Urine WBC (Auto) 01/15/17 01/15/17 01/15/17 15:11 15:20 17:49 RBC Hgb Hct MCV MCH Lymph % (Auto) [place] % (Auto) Lymph # Seg Neutrophils % POC ABG pCO2 POC ABG pO2 Sodium Potassium Chloride 109.0 H Carbon Dioxide 20 L D BUN 32 H Creatinine 1.6 H Glucose 110 H POC Glucose 110 H 136 H Lactic Acid Calcium 6.7 L Phosphorus Magnesium Total Protein Albumin Urine WBC (Auto) 01/15/17 01/15/17 01/15/17 19:42 20:18 21:14 RBC Hgb Hct MCV MCH Lymph % (Auto) [place] % (Auto) Lymph # Seg Neutrophils % POC ABG pCO2 POC ABG pO2 Sodium Potassium Chloride Carbon Dioxide BUN Creatinine Glucose POC Glucose 186 H 161 H 129 H Lactic Acid Calcium Phosphorus Magnesium Total Protein Albumin Urine WBC (Auto) 01/15/17 01/15/17 01/15/17 21:58 22:30 23:08 RBC Hgb Hct MCV MCH Lymph % (Auto) [place] % (Auto) Lymph # Seg Neutrophils % POC ABG pCO2 POC ABG pO2 Sodium Potassium Chloride 111.0 H Carbon Dioxide 19 L BUN 29 H Creatinine 1.3 H Glucose 114 H POC Glucose 145 H 122 H Lactic Acid Calcium 6.7 L Phosphorus Magnesium Total Protein Albumin Urine WBC (Auto) 01/16/17 01/16/17 01/16/17 01:00 01:00 04:00 RBC 3.21 L Hgb 8.8 L Hct 30.1 L MCV 98 H MCH 27 L Lymph % (Auto) 6.3 L [place] % (Auto) Lymph # 0.4 L Seg Neutrophils % 86.9 H POC ABG pCO2 POC ABG pO2 Sodium Potassium Chloride 109.8 H Carbon Dioxide 19 L BUN 28 H Creatinine Glucose 109 H POC Glucose Lactic Acid 4.5 H* Calcium 6.7 L Phosphorus Magnesium Total Protein Albumin Urine WBC (Auto) 01/16/17 01/16/17 01/16/17 04:00 11:34 17:39 RBC Hgb Hct MCV MCH Lymph % (Auto) [place] % (Auto) Lymph # Seg Neutrophils % POC ABG pCO2 POC ABG pO2 Sodium Potassium Chloride 109.9 H Carbon Dioxide 19 L BUN 27 H Creatinine Glucose 287 H POC Glucose 278 H 161 H Lactic Acid Calcium 6.8 L Phosphorus 1.1 L D Magnesium 1.3 L Total Protein 4.6 L Albumin 2.4 L Urine WBC (Auto) 01/17/17 01/17/17 01/17/17 00:18 05:00 05:00 RBC 3.31 L Hgb 9.2 L Hct 28.0 L MCV MCH Lymph % (Auto) [place] % (Auto) 8.7 H Lymph # 0.8 L Seg Neutrophils % 74.2 H POC ABG pCO2 POC ABG pO2 Sodium Potassium Chloride Carbon Dioxide BUN Creatinine Glucose POC Glucose 118 H Lactic Acid Calcium Phosphorus 2.2 L D Magnesium Total Protein Albumin Urine WBC (Auto) 01/17/17 01/17/17 01/17/17 05:00 05:00 07:50 RBC Hgb Hct MCV MCH Lymph % (Auto) [place] % (Auto) Lymph # Seg Neutrophils % POC ABG pCO2 POC ABG pO2 Sodium Potassium Chloride Carbon Dioxide 18 L BUN Creatinine Glucose 113 H POC Glucose 131 H Lactic Acid 3.8 H* Calcium 7.1 L Phosphorus Magnesium Total Protein Albumin Urine WBC (Auto) 01/17/17 01/17/17 01/17/17 11:47 16:31 17:35 RBC Hgb Hct MCV MCH Lymph % (Auto) [place] % (Auto) Lymph # Seg Neutrophils % POC ABG pCO2 POC ABG pO2 Sodium Potassium Chloride Carbon Dioxide BUN Creatinine Glucose POC Glucose 173 H 152 H 181 H Lactic Acid Calcium Phosphorus Magnesium Total Protein Albumin Urine WBC (Auto) 01/18/17 01/18/17 01/18/17 00:45 03:12 05:47 RBC 3.38 L Hgb 9.3 L Hct 28.6 L MCV MCH Lymph % (Auto) [place] % (Auto) 10.4 H Lymph # 0.9 L Seg Neutrophils % POC ABG pCO2 POC ABG pO2 Sodium Potassium Chloride Carbon Dioxide BUN Creatinine Glucose POC Glucose 48 L 66 L Lactic Acid Calcium Phosphorus Magnesium Total Protein Albumin Urine WBC (Auto) 01/18/17 01/18/17 01/18/17 05:47 05:47 07:04 RBC Hgb Hct MCV MCH Lymph % (Auto) [place] % (Auto) Lymph # Seg Neutrophils % POC ABG pCO2 POC ABG pO2 Sodium 132 L Potassium 3.5 L Chloride Carbon Dioxide 20 L BUN Creatinine Glucose POC Glucose 107 H Lactic Acid 3.0 H* Calcium 7.5 L Phosphorus 2.1 L Magnesium Total Protein Albumin Urine WBC (Auto) 01/18/17 11:36 RBC Hgb Hct MCV MCH Lymph % (Auto) [place] % (Auto) Lymph # Seg Neutrophils % POC ABG pCO2 POC ABG pO2 Sodium Potassium Chloride Carbon Dioxide BUN Creatinine Glucose POC Glucose 170 H Lactic Acid Calcium Phosphorus Magnesium Total Protein Albumin Urine WBC (Auto) Chest x-ray: report reviewed, image reviewed
--- NOTE | 2017-01-18 20:13 | Progress Note ---
Assessment and Plan Assessment and plan: 1. DKA - pH 6.8, bicarbonate 2 on admission; admitted to ICU, started on insulin drip, IV fluids and electrolytes replacement protocol; AG closed and insulin drip discontinued yesterday; transitioned to long-acting subcutaneous insulin along with SSI to assess requirements 2. Sepsis - lactic acid elevated; UA, urine culture, blood cultures obtained and started on broad-spectrum antibiotics;, then C. difficile positive 01/16; started on metronidazole; UA positive, but urine and blood cultures negative to date; discontinue Vanc and cefepime, continue levofloxacin 3. Shock - septic and hypovolemic; antibiotics (as above)+ metronidazole, hydration; wean off of vasodepressors 4. C diff colitis - started on Flagyl 5. Acute renal failure -due to vasomotor nephropathy versus ATN from hypotension; resolved with IV fluids 6. Severe acidosis - metabolic/lactic; treat underlying conditions; improving 7. Pseudohyponatremia - corrected 8. Acute metabolic encephalopathy - due to all of the above 9. Deconditioning - consult PT 10. DVT - heparin subcutaneous History Interval history: feeling better, no specific complaints, except for weakness Hospitalist Physical - Constitutional Vitals: Temp Pulse Resp BP Pulse Ox 98.4 F 103 H 16 164/93 99 01/18/17 15:33 01/18/17 15:33 01/18/17 15:33 01/18/17 15:33 01/18/17 15:33 General appearance: Present: no acute distress - EENT Eyes: Present: PERRL, EOM intact. Absent: scleral icterus, conjunctival injection - Neck Neck: Present: supple. Absent: enlarged thyroid, masses or JVD - Respiratory Respiratory effort: normal Respiratory: bilateral: CTA, negative: rales, rhonchi, wheezing - Cardiovascular Rhythm: other (tachycardic) Heart Sounds: Present: S1 & S2. Absent: systolic murmur - Extremities Extremities: no ischemia Results - Labs CBC & Chem 7: 01/22/17 05:50 01/22/17 05:50 Labs: Laboratory Last Values WBC 4.8 K/mm3 (4.5-11.0) 01/18/17 05:47 RBC 3.38 M/mm3 (3.65-5.03) L 01/18/17 05:47 Hgb 9.3 gm/dl (10.1-14.3) L 01/18/17 05:47 Hct 28.6 % (30.3-42.9) L 01/18/17 05:47 MCV 85 fl (79-97) 01/18/17 05:47 MCH 28 pg (28-32) 01/18/17 05:47 MCHC 33 % (30-34) 01/18/17 05:47 RDW 14.2 % (13.2-15.2) 01/18/17 05:47 Plt Count 161 K/mm3 (140-440) 01/18/17 05:47 Lymph % (Auto) 19.2 % (13.4-35.0) 01/18/17 05:47 [place] % (Auto) 10.4 % (0.0-7.3) H 01/18/17 05:47 Eos % (Auto) 2.2 % (0.0-4.3) 01/18/17 05:47 Baso % (Auto) 0.2 % (0.0-1.8) 01/18/17 05:47 Lymph # 0.9 K/mm3 (1.2-5.4) L 01/18/17 05:47 [place] # 0.5 K/mm3 (0.0-0.8) 01/18/17 05:47 Eos # 0.1 K/mm3 (0.0-0.4) 01/18/17 05:47 Baso # 0.0 K/mm3 (0.0-0.1) 01/18/17 05:47 Seg Neutrophils % 68.0 % (40.0-70.0) 01/18/17 05:47 Seg Neutrophils # 3.3 K/mm3 (1.8-7.7) 01/18/17 05:47 PT 15.6 Sec. (12.2-14.9) H 01/14/17 22:04 INR 1.25 (0.87-1.13) H 01/14/17 22:04 APTT 24.3 Sec. (24.2-36.6) 01/14/17 22:04 POC ABG pH 7.350 (7.35-7.45) 01/15/17 11:52 POC ABG pCO2 33.0 (35-45) L 01/15/17 11:52 POC ABG pO2 163 (80-105) H 01/15/17 11:52 POC ABG HCO3 18.2 01/15/17 11:52 POC ABG Total CO2 19 01/15/17 11:52 POC ABG O2 Sat 99 01/15/17 11:52 POC ABG Base Excess -7 01/15/17 11:52 VBG pH 6.857 (7.320-7.420) L* 01/14/17 22:04 FiO2 1 % 01/15/17 11:52 Sodium 132 mmol/L (137-145) L 01/18/17 05:47 Potassium 3.5 mmol/L (3.6-5.0) L 01/18/17 05:47 Chloride 99.9 mmol/L (98-107) 01/18/17 05:47 Carbon Dioxide 20 mmol/L (22-30) L 01/18/17 05:47 Anion Gap 16 mmol/L 01/18/17 05:47 BUN 11 mg/dL (7-17) 01/18/17 05:47 Creatinine 0.9 mg/dL (0.7-1.2) 01/18/17 05:47 Estimated GFR > 60 ml/min 01/18/17 05:47 BUN/Creatinine Ratio 12.22 % 01/18/17 05:47 Glucose 90 mg/dL (65-100) 01/18/17 05:47 POC Glucose 118 (70-105) H 01/18/17 18:56 Lactic Acid 3.0 mmol/L (0.7-2.0) H* 01/18/17 05:47 Calcium 7.5 mg/dL (8.4-10.2) L 01/18/17 05:47 Phosphorus 2.1 mg/dL (2.5-4.5) L 01/18/17 05:47 Magnesium 1.8 mg/dL (1.7-2.3) 01/18/17 05:47 Total Bilirubin 0.2 mg/dL (0.1-1.2) 01/16/17 04:00 AST 34 units/L (5-40) 01/16/17 04:00 ALT 30 units/L (7-56) 01/16/17 04:00 Alkaline Phosphatase 75 units/L (35-129) 01/16/17 04:00 Total Creatine Kinase 120 units/L (30-135) 01/14/17 22:04 CK-MB (CK-2) 3.6 ng/mL (0.0-4.0) 01/14/17 22:04 CK-MB (CK-2) Rel Index 3.0 (0-4) 01/14/17 22:04 Troponin T < 0.010 ng/mL (0.00-0.029) 01/14/17 22:04 NT-Pro-B Natriuret Pep 768.5 pg/mL (0-900) 01/14/17 22:04 Total Protein 4.6 g/dL (6.3-8.2) L 01/16/17 04:00 Albumin 2.4 g/dL (3.9-5) L 01/16/17 04:00 Albumin/Globulin Ratio 1.1 % 01/16/17 04:00 Urine Color Yellow (Yellow) 01/15/17 12:30 Urine Turbidity Turbid (Clear) 01/15/17 12:30 Urine pH 5.0 (5.0-7.0) 01/15/17 12:30 Ur Specific [place] 1.016 (1.003-1.030) 01/15/17 12:30 Urine Protein 30 mg/dl mg/dL (Negative) 01/15/17 12:30 Urine Glucose (UA) Neg mg/dL (Negative) 01/15/17 12:30 Urine Ketones 20 mg/dL (Negative) 01/15/17 12:30 Urine Blood Mod (Negative) 01/15/17 12:30 Urine Nitrite Neg (Negative) 01/15/17 12:30 Urine Bilirubin Neg (Negative) 01/15/17 12:30 Urine Urobilinogen < 2.0 mg/dL (<2.0) 01/15/17 12:30 Ur Leukocyte Esterase Lg (Negative) 01/15/17 12:30 Urine WBC (Auto) > 182.0 /HPF (0.0-6.0) H 01/15/17 12:30 Urine RBC (Auto) 39.0 /HPF (0.0-6.0) 01/15/17 12:30 U Epithel Cells (Auto) 4.0 /HPF (0-13.0) 01/15/17 12:30 Urine Bacteria (Auto) 1+ /HPF (Negative) 01/15/17 12:30 Urine Mucus Few /HPF 01/15/17 12:30 Urine Opiates Screen Presumptive negative 01/15/17 12:30 Urine Methadone Screen Presumptive negative 01/15/17 12:30 Ur Barbiturates Screen Presumptive negative 01/15/17 12:30 Ur Phencyclidine Scrn Presumptive negative 01/15/17 12:30 Ur Amphetamines Screen Presumptive negative 01/15/17 12:30 U Benzodiazepines Scrn Presumptive negative 01/15/17 12:30 Urine Cocaine Screen Presumptive negative 01/15/17 12:30 U Marijuana (THC) Screen Presumptive negative 01/15/17 12:30 Drugs of Abuse Note Disclamer 01/15/17 12:30 Plasma/Serum Alcohol < 0.01 gm% (0-0.07) 01/14/17 22:04 Ketones 141.4 mg/dL (0.2-2.8) H 01/14/17 22:04
[2017-01-19] MEDS: D5/0.45NS 1,000 ML IV SCH (05:31)
[2017-01-19] MEDS: HEPARIN SUB-Q SCH ×3 (05:34→22:39)
[2017-01-19] MEDS: FLAGYL PO SCH ×3 (05:35→22:37)
[2017-01-19 06:33] LABS: Anion Gap 18 mmol/L; BUN/Creatinine Ratio 12.22; Blood Urea Nitrogen 11 mg/dL (7-17); Calcium 7.5 mg/dL (8.4-10.2); Carbon Dioxide 20 mmol/L (22-30); Chloride 94.3 mmol/L (98-107); Glucose 383 mg/dL (65-100); Potassium 4.4 mmol/L (3.6-5.0); Sodium 128 mmol/L (137-145)
[2017-01-19] MEDS: LEVAQUIN PO SCH (09:47)
[2017-01-19] MEDS: PEPCID PO SCH ×2 (09:47→22:37)
--- NOTE | 2017-01-19 13:10 | Progress Note ---
Assessment and Plan Imp: 1. DKA, resolved 2. Sepsis, resolved 3. Hypovolemic/septic shock, resolved 4. Lactic acidosis, improving 5. BRIGIDA, resolved 6. Cdiff colitis Rec: 1. Flagyl PO; Ucx neg x 48 hours; believe okay to stop Levaquin 2. PT/OT (ordered 01/17/17, not done for unclear reasons), OOB if able; may need GERRY 3. DVT PPx 4. Can be discharged from our standpoint; will sign off; please call with questions or new issues Plan of care reviewed w/ patient, she understands/agrees Subjective Date of service: 01/19/17 Principal diagnosis: DKA, Sepsis Interval history: Alert, feeling better. Lower abd pain resolved. Appetite okay. No N/V. No SOB. Active Medications Acetaminophen (Tylenol) 650 mg PO Q6H PRN PRN Reason: Pain Last Admin: 01/17/17 00:51 Dose: 650 mg Al Hydrox/Mg Hydrox/Simethicone (Alum-Mag Hydrox-Simeth [id number]/5ml) 30 ml PO Q4H PRN PRN Reason: Indigestion Bisacodyl (Dulcolax) 10 mg [place] QDAY PRN PRN Reason: constipation unrelieved by MOM Dextrose (D50w (25gm)) 0 ml IV ONCE PRN PRN Reason: Hypoglycemia Last Admin: 01/18/17 03:15 Dose: 15 ml Famotidine (Pepcid) [address] [facility] Last Admin: 01/19/17 09:47 Dose: 20 mg Heparin Sodium (Porcine) (Heparin) 5,000 unit SUB-Q Q8HR [facility] Last Admin: 01/19/17 05:34 Dose: 5,000 unit Hydralazine HCl (Apresoline) 5 mg IV Q4HR PRN PRN Reason: SBP>150 Last Admin: 01/17/17 21:24 Dose: 5 mg Dextrose/Sodium Chloride (D5/0.45ns) 1,000 mls @ 50 mls/hr IV DIRECT [facility] Last Admin: 01/19/17 05:31 Dose: 50 mls/hr Insulin Human Isoph/Insulin Regular (Novolin 70/30) 10 unit SUB-Q BIDDIAB [facility] Last Admin: 01/19/17 09:43 Dose: 10 unit Insulin Human Regular (Novolin R) 0 units SUB-Q Q6HR [facility] PRN Reason: Protocol Last Admin: 01/19/17 06:26 Dose: 10 units Levofloxacin (Levaquin) [address] [facility] Last Admin: 01/19/17 09:47 Dose: 250 mg Metronidazole (Flagyl) [address] [facility] Last Admin: 01/19/17 05:35 Dose: 500 mg Ondansetron HCl (Zofran) 4 mg IV Q8H PRN PRN Reason: N/V unrelieved by Mikala Objective Vital Signs - 12hr 01/19/17 01/19/17 01/19/17 02:30 04:00 07:29 Temperature 99.0 F 98.5 F 97.6 F Pulse Rate [ 107 H 109 H 99 H Left Radial] Respiratory 18 20 14 Rate Blood Pressure 136/78 126/74 154/87 [Left Arm] O2 Sat by Pulse 99 98 97 Oximetry Constitutional: no acute distress, alert Eyes: non-icteric ENT: oropharynx moist Neck: supple Effort: normal Ascultation: Bilateral: clear Cardiovascular: regular rate and rhythm (no mrg) Gastrointestinal: normoactive bowel sounds, soft, non-tender, non-distended Integumentary: normal Extremities: no cyanosis, no edema, pink and warm Neurologic: normal mental status, non-focal exam, pupils equal and round, CN II- XII normal Psychiatric: mood appropriate, affect normal CBC and BMP: 01/18/17 05:47 01/19/17 05:09 ABG, PT/INR, D-dimer: ABG POC ABG pH 7.350 (7.35-7.45) 01/15/17 11:52 POC ABG pCO2 33.0 (35-45) L 01/15/17 11:52 POC ABG pO2 163 (80-105) H 01/15/17 11:52 POC ABG HCO3 18.2 01/15/17 11:52 POC ABG Total CO2 19 01/15/17 11:52 POC ABG O2 Sat 99 01/15/17 11:52 PT/INR, D-dimer PT 15.6 Sec. (12.2-14.9) H 01/14/17 22:04 INR 1.25 (0.87-1.13) H 01/14/17 22:04 Abnormal lab findings: Abnormal Labs 01/15/17 01/15/17 01/15/17 00:15 00:15 00:54 RBC Hgb Hct MCV MCH Lymph % (Auto) [place] % (Auto) Lymph # Seg Neutrophils % POC ABG pCO2 POC ABG pO2 Sodium 131 L D Potassium Chloride 84.5 L Carbon Dioxide 2 L* BUN 44 H Creatinine 2.0 H Glucose 739 H* POC Glucose > 500 H Lactic Acid Calcium 7.7 L Phosphorus 5.7 H Magnesium Total Protein Albumin Urine WBC (Auto) 01/15/17 01/15/17 01/15/17 01:59 03:11 04:30 RBC Hgb Hct MCV MCH Lymph % (Auto) [place] % (Auto) Lymph # Seg Neutrophils % POC ABG pCO2 POC ABG pO2 Sodium Potassium 3.3 L D Chloride 90.9 L Carbon Dioxide 5 L* BUN 39 H Creatinine 1.9 H Glucose 512 H* POC Glucose > 500 H > 500 H Lactic Acid Calcium 7.1 L Phosphorus Magnesium Total Protein Albumin Urine WBC (Auto) 01/15/17 01/15/17 01/15/17 04:52 05:58 06:59 RBC Hgb Hct MCV MCH Lymph % (Auto) [place] % (Auto) Lymph # Seg Neutrophils % POC ABG pCO2 POC ABG pO2 Sodium Potassium 3.3 L Chloride Carbon Dioxide 9 L* BUN 38 H Creatinine 2.0 H Glucose 289 H POC Glucose 461 H 360 H Lactic Acid Calcium 7.4 L Phosphorus Magnesium Total Protein Albumin Urine WBC (Auto) 01/15/17 01/15/17 01/15/17 07:35 07:48 08:53 RBC Hgb Hct MCV MCH Lymph % (Auto) [place] % (Auto) Lymph # Seg Neutrophils % POC ABG pCO2 POC ABG pO2 Sodium Potassium Chloride Carbon Dioxide BUN Creatinine Glucose POC Glucose 227 H 239 H 181 H Lactic Acid Calcium Phosphorus Magnesium Total Protein Albumin Urine WBC (Auto) 01/15/17 01/15/17 01/15/17 09:05 09:59 10:57 RBC Hgb Hct MCV MCH Lymph % (Auto) [place] % (Auto) Lymph # Seg Neutrophils % POC ABG pCO2 POC ABG pO2 Sodium Potassium Chloride Carbon Dioxide BUN Creatinine Glucose POC Glucose 148 H 113 H Lactic Acid 9.4 H* Calcium Phosphorus Magnesium Total Protein Albumin Urine WBC (Auto) 03/04/2801/15/17 01/15/17 11:48 11:52 12:30 RBC Hgb Hct MCV MCH Lymph % (Auto) [place] % (Auto) Lymph # Seg Neutrophils % POC ABG pCO2 33.0 L POC ABG pO2 163 H Sodium Potassium Chloride Carbon Dioxide BUN Creatinine Glucose POC Glucose 118 H Lactic Acid Calcium Phosphorus Magnesium Total Protein Albumin Urine WBC (Auto) > 182.0 H 01/15/17 01/15/17 01/15/17 13:15 13:31 13:58 RBC Hgb Hct MCV MCH Lymph % (Auto) [place] % (Auto) Lymph # Seg Neutrophils % POC ABG pCO2 POC ABG pO2 Sodium Potassium Chloride Carbon Dioxide BUN Creatinine Glucose POC Glucose 131 H 116 H Lactic Acid 6.2 H* Calcium Phosphorus Magnesium Total Protein Albumin Urine WBC (Auto) 01/15/17 01/15/17 01/15/17 15:11 15:20 17:49 RBC Hgb Hct MCV MCH Lymph % (Auto) [place] % (Auto) Lymph # Seg Neutrophils % POC ABG pCO2 POC ABG pO2 Sodium Potassium Chloride 109.0 H Carbon Dioxide 20 L D BUN 32 H Creatinine 1.6 H Glucose 110 H POC Glucose 110 H 136 H Lactic Acid Calcium 6.7 L Phosphorus Magnesium Total Protein Albumin Urine WBC (Auto) 01/15/17 01/15/17 01/15/17 19:42 20:18 21:14 RBC Hgb Hct MCV MCH Lymph % (Auto) [place] % (Auto) Lymph # Seg Neutrophils % POC ABG pCO2 POC ABG pO2 Sodium Potassium Chloride Carbon Dioxide BUN Creatinine Glucose POC Glucose 186 H 161 H 129 H Lactic Acid Calcium Phosphorus Magnesium Total Protein Albumin Urine WBC (Auto) 01/15/17 01/15/17 01/15/17 21:58 22:30 23:08 RBC Hgb Hct MCV MCH Lymph % (Auto) [place] % (Auto) Lymph # Seg Neutrophils % POC ABG pCO2 POC ABG pO2 Sodium Potassium Chloride 111.0 H Carbon Dioxide 19 L BUN 29 H Creatinine 1.3 H Glucose 114 H POC Glucose 145 H 122 H Lactic Acid Calcium 6.7 L Phosphorus Magnesium Total Protein Albumin Urine WBC (Auto) 01/16/17 01/16/17 01/16/17 01:00 01:00 04:00 RBC 3.21 L Hgb 8.8 L Hct 30.1 L MCV 98 H MCH 27 L Lymph % (Auto) 6.3 L [place] % (Auto) Lymph # 0.4 L Seg Neutrophils % 86.9 H POC ABG pCO2 POC ABG pO2 Sodium Potassium Chloride 109.8 H Carbon Dioxide 19 L BUN 28 H Creatinine Glucose 109 H POC Glucose Lactic Acid 4.5 H* Calcium 6.7 L Phosphorus Magnesium Total Protein Albumin Urine WBC (Auto) 01/16/17 01/16/17 01/16/17 04:00 11:34 17:39 RBC Hgb Hct MCV MCH Lymph % (Auto) [place] % (Auto) Lymph # Seg Neutrophils % POC ABG pCO2 POC ABG pO2 Sodium Potassium Chloride 109.9 H Carbon Dioxide 19 L BUN 27 H Creatinine Glucose 287 H POC Glucose 278 H 161 H Lactic Acid Calcium 6.8 L Phosphorus 1.1 L D Magnesium 1.3 L Total Protein 4.6 L Albumin 2.4 L Urine WBC (Auto) 01/17/17 01/17/17 01/17/17 00:18 05:00 05:00 RBC 3.31 L Hgb 9.2 L Hct 28.0 L MCV MCH Lymph % (Auto) [place] % (Auto) 8.7 H Lymph # 0.8 L Seg Neutrophils % 74.2 H POC ABG pCO2 POC ABG pO2 Sodium Potassium Chloride Carbon Dioxide BUN Creatinine Glucose POC Glucose 118 H Lactic Acid Calcium Phosphorus 2.2 L D Magnesium Total Protein Albumin Urine WBC (Auto) 01/17/17 01/17/17 01/17/17 05:00 05:00 07:50 RBC Hgb Hct MCV MCH Lymph % (Auto) [place] % (Auto) Lymph # Seg Neutrophils % POC ABG pCO2 POC ABG pO2 Sodium Potassium Chloride Carbon Dioxide 18 L BUN Creatinine Glucose 113 H POC Glucose 131 H Lactic Acid 3.8 H* Calcium 7.1 L Phosphorus Magnesium Total Protein Albumin Urine WBC (Auto) 01/17/17 01/17/17 01/17/17 11:47 16:31 17:35 RBC Hgb Hct MCV MCH Lymph % (Auto) [place] % (Auto) Lymph # Seg Neutrophils % POC ABG pCO2 POC ABG pO2 Sodium Potassium Chloride Carbon Dioxide BUN Creatinine Glucose POC Glucose 173 H 152 H 181 H Lactic Acid Calcium Phosphorus Magnesium Total Protein Albumin Urine WBC (Auto) 01/18/17 01/18/17 01/18/17 00:45 03:12 05:47 RBC 3.38 L Hgb 9.3 L Hct 28.6 L MCV MCH Lymph % (Auto) [place] % (Auto) 10.4 H Lymph # 0.9 L Seg Neutrophils % POC ABG pCO2 POC ABG pO2 Sodium Potassium Chloride Carbon Dioxide BUN Creatinine Glucose POC Glucose 48 L 66 L Lactic Acid Calcium Phosphorus Magnesium Total Protein Albumin Urine WBC (Auto) 01/18/17 01/18/17 01/18/17 05:47 05:47 07:04 RBC Hgb Hct MCV MCH Lymph % (Auto) [place] % (Auto) Lymph # Seg Neutrophils % POC ABG pCO2 POC ABG pO2 Sodium 132 L Potassium 3.5 L Chloride Carbon Dioxide 20 L BUN Creatinine Glucose POC Glucose 107 H Lactic Acid 3.0 H* Calcium 7.5 L Phosphorus 2.1 L Magnesium Total Protein Albumin Urine WBC (Auto) 01/18/17 01/18/17 01/18/17 11:36 17:27 18:56 RBC Hgb Hct MCV MCH Lymph % (Auto) [place] % (Auto) Lymph # Seg Neutrophils % POC ABG pCO2 POC ABG pO2 Sodium Potassium Chloride Carbon Dioxide BUN Creatinine Glucose POC Glucose 170 H 41 L 118 H Lactic Acid Calcium Phosphorus Magnesium Total Protein Albumin Urine WBC (Auto) 01/19/17 01/19/17 01/19/17 01:55 05:09 05:35 RBC Hgb Hct MCV MCH Lymph % (Auto) [place] % (Auto) Lymph # Seg Neutrophils % POC ABG pCO2 POC ABG pO2 Sodium 128 L Potassium Chloride 94.3 L Carbon Dioxide 20 L BUN Creatinine Glucose 383 H POC Glucose 289 H 378 H Lactic Acid Calcium 7.5 L Phosphorus Magnesium Total Protein Albumin Urine WBC (Auto) Chest x-ray: report reviewed, image reviewed
--- NOTE | 2017-01-19 19:33 | Progress Note ---
Assessment and Plan Assessment and plan: 1. DKA - pH 6.8, bicarbonate 2 on admission; admitted to ICU, started on insulin drip, IV fluids and electrolytes replacement protocol; AG closed and insulin drip discontinued yesterday; transitioned to long-acting subcutaneous insulin along with SSI to assess requirements 2. Sepsis - lactic acid elevated; UA, urine culture, blood cultures obtained and started on broad-spectrum antibiotics;, then C. difficile positive 01/16; started on metronidazole; UA positive, but urine and blood cultures negative to date; discontinue Vanc and cefepime, continue levofloxacin 3. Shock - septic and hypovolemic; antibiotics (as above)+ metronidazole, hydration; wean off of vasodepressors 4. C diff colitis - started on Flagyl 5. Acute renal failure -due to vasomotor nephropathy versus ATN from hypotension; resolved with IV fluids 6. Severe acidosis - metabolic/lactic; treat underlying conditions; improving 7. Pseudohyponatremia - corrected 8. Acute metabolic encephalopathy - due to all of the above 9. Deconditioning - consult PT 10. DVT - heparin subcutaneous History Interval history: doing better, no complaints; weak Hospitalist Physical - Constitutional Vitals: Temp Pulse Resp BP Pulse Ox 98.3 F 72 18 181/103 98 01/19/17 14:56 01/19/17 16:00 01/19/17 16:00 01/19/17 14:56 01/19/17 14:56 General appearance: Present: no acute distress Results - Labs CBC & Chem 7: 01/18/17 05:47 01/19/17 05:09 Labs: Laboratory Last Values WBC 4.8 K/mm3 (4.5-11.0) 01/18/17 05:47 RBC 3.38 M/mm3 (3.65-5.03) L 01/18/17 05:47 Hgb 9.3 gm/dl (10.1-14.3) L 01/18/17 05:47 Hct 28.6 % (30.3-42.9) L 01/18/17 05:47 MCV 85 fl (79-97) 01/18/17 05:47 MCH 28 pg (28-32) 01/18/17 05:47 MCHC 33 % (30-34) 01/18/17 05:47 RDW 14.2 % (13.2-15.2) 01/18/17 05:47 Plt Count 161 K/mm3 (140-440) 01/18/17 05:47 Lymph % (Auto) 19.2 % (13.4-35.0) 01/18/17 05:47 [place] % (Auto) 10.4 % (0.0-7.3) H 01/18/17 05:47 Eos % (Auto) 2.2 % (0.0-4.3) 01/18/17 05:47 Baso % (Auto) 0.2 % (0.0-1.8) 01/18/17 05:47 Lymph # 0.9 K/mm3 (1.2-5.4) L 01/18/17 05:47 [place] # 0.5 K/mm3 (0.0-0.8) 01/18/17 05:47 Eos # 0.1 K/mm3 (0.0-0.4) 01/18/17 05:47 Baso # 0.0 K/mm3 (0.0-0.1) 01/18/17 05:47 Seg Neutrophils % 68.0 % (40.0-70.0) 01/18/17 05:47 Seg Neutrophils # 3.3 K/mm3 (1.8-7.7) 01/18/17 05:47 PT 15.6 Sec. (12.2-14.9) H 01/14/17 22:04 INR 1.25 (0.87-1.13) H 01/14/17 22:04 APTT 24.3 Sec. (24.2-36.6) 01/14/17 22:04 POC ABG pH 7.350 (7.35-7.45) 01/15/17 11:52 POC ABG pCO2 33.0 (35-45) L 01/15/17 11:52 POC ABG pO2 163 (80-105) H 01/15/17 11:52 POC ABG HCO3 18.2 01/15/17 11:52 POC ABG Total CO2 19 01/15/17 11:52 POC ABG O2 Sat 99 01/15/17 11:52 POC ABG Base Excess -7 01/15/17 11:52 VBG pH 6.857 (7.320-7.420) L* 01/14/17 22:04 FiO2 1 % 01/15/17 11:52 Sodium 128 mmol/L (137-145) L 01/19/17 05:09 Potassium 4.4 mmol/L (3.6-5.0) D 01/19/17 05:09 Chloride 94.3 mmol/L (98-107) L 01/19/17 05:09 Carbon Dioxide 20 mmol/L (22-30) L 01/19/17 05:09 Anion Gap 18 mmol/L 01/19/17 05:09 BUN 11 mg/dL (7-17) 01/19/17 05:09 Creatinine 0.9 mg/dL (0.7-1.2) 01/19/17 05:09 Estimated GFR > 60 ml/min 01/19/17 05:09 BUN/Creatinine Ratio 12.22 % 01/19/17 05:09 Glucose 383 mg/dL (65-100) H 01/19/17 05:09 POC Glucose 83 (70-105) 01/19/17 16:16 Lactic Acid 3.0 mmol/L (0.7-2.0) H* 01/18/17 05:47 Calcium 7.5 mg/dL (8.4-10.2) L 01/19/17 05:09 Phosphorus 2.1 mg/dL (2.5-4.5) L 01/18/17 05:47 Magnesium 1.8 mg/dL (1.7-2.3) 01/19/17 05:09 Total Bilirubin 0.2 mg/dL (0.1-1.2) 01/16/17 04:00 AST 34 units/L (5-40) 01/16/17 04:00 ALT 30 units/L (7-56) 01/16/17 04:00 Alkaline Phosphatase 75 units/L (35-129) 01/16/17 04:00 Total Creatine Kinase 120 units/L (30-135) 01/14/17 22:04 CK-MB (CK-2) 3.6 ng/mL (0.0-4.0) 01/14/17 22:04 CK-MB (CK-2) Rel Index 3.0 (0-4) 01/14/17 22:04 Troponin T < 0.010 ng/mL (0.00-0.029) 01/14/17 22:04 NT-Pro-B Natriuret Pep 768.5 pg/mL (0-900) 01/14/17 22:04 Total Protein 4.6 g/dL (6.3-8.2) L 01/16/17 04:00 Albumin 2.4 g/dL (3.9-5) L 01/16/17 04:00 Albumin/Globulin Ratio 1.1 % 01/16/17 04:00 Urine Color Yellow (Yellow) 01/15/17 12:30 Urine Turbidity Turbid (Clear) 01/15/17 12:30 Urine pH 5.0 (5.0-7.0) 01/15/17 12:30 Ur Specific [place] 1.016 (1.003-1.030) 01/15/17 12:30 Urine Protein 30 mg/dl mg/dL (Negative) 01/15/17 12:30 Urine Glucose (UA) Neg mg/dL (Negative) 01/15/17 12:30 Urine Ketones 20 mg/dL (Negative) 01/15/17 12:30 Urine Blood Mod (Negative) 01/15/17 12:30 Urine Nitrite Neg (Negative) 01/15/17 12:30 Urine Bilirubin Neg (Negative) 01/15/17 12:30 Urine Urobilinogen < 2.0 mg/dL (<2.0) 01/15/17 12:30 Ur Leukocyte Esterase Lg (Negative) 01/15/17 12:30 Urine WBC (Auto) > 182.0 /HPF (0.0-6.0) H 01/15/17 12:30 Urine RBC (Auto) 39.0 /HPF (0.0-6.0) 01/15/17 12:30 U Epithel Cells (Auto) 4.0 /HPF (0-13.0) 01/15/17 12:30 Urine Bacteria (Auto) 1+ /HPF (Negative) 01/15/17 12:30 Urine Mucus Few /HPF 01/15/17 12:30 Urine Opiates Screen Presumptive negative 01/15/17 12:30 Urine Methadone Screen Presumptive negative 01/15/17 12:30 Ur Barbiturates Screen Presumptive negative 01/15/17 12:30 Ur Phencyclidine Scrn Presumptive negative 01/15/17 12:30 Ur Amphetamines Screen Presumptive negative 01/15/17 12:30 U Benzodiazepines Scrn Presumptive negative 01/15/17 12:30 Urine Cocaine Screen Presumptive negative 01/15/17 12:30 U Marijuana (THC) Screen Presumptive negative 01/15/17 12:30 Drugs of Abuse Note Disclamer 01/15/17 12:30 Plasma/Serum Alcohol < 0.01 gm% (0-0.07) 01/14/17 22:04 Ketones 141.4 mg/dL (0.2-2.8) H 01/14/17 22:04
[2017-01-19] MEDS: TYLENOL PO PRN (23:00)
[2017-01-20] MEDS: NEURONTIN PO SCH ×4 (00:48→20:30)
[2017-01-20] MEDS: FLAGYL PO SCH ×3 (06:10→22:21)
[2017-01-20] MEDS: HEPARIN SUB-Q SCH ×3 (06:11→22:21)
[2017-01-20 06:13] LABS: Anion Gap 16 mmol/L; Blood Urea Nitrogen 12 mg/dL (7-17); Calcium 7.7 mg/dL (8.4-10.2); Carbon Dioxide 23 mmol/L (22-30); Chloride 98.1 mmol/L (98-107); Glucose 190 mg/dL (65-100); Potassium 4.1 mmol/L (3.6-5.0); Sodium 133 mmol/L (137-145)
[2017-01-20] MEDS: LEVAQUIN PO SCH (09:49)
[2017-01-20] MEDS: APRESOLINE IV PRN (11:08)
[2017-01-20] MEDS: PEPCID PO SCH ×2 (11:23→22:21)
--- NOTE | 2017-01-20 14:08 | Progress Note ---
Subjective Principal diagnosis: DKA, Sepsis Objective Vital Signs - 12hr 01/20/17 01/20/17 01/20/17 03:54 08:00 10:00 Temperature 98.1 F 97.9 F Pulse Rate [ 107 H 94 H Left Radial] Respiratory 18 18 Rate Blood Pressure Blood Pressure 129/72 162/94 [Left Arm] O2 Sat by Pulse 98 99 98 Oximetry 01/20/17 11:08 Temperature Pulse Rate [ Left Radial] Respiratory Rate Blood Pressure 162/94 Blood Pressure [Left Arm] O2 Sat by Pulse Oximetry Constitutional: no acute distress, alert Eyes: non-icteric ENT: oropharynx moist Neck: supple Effort: normal Ascultation: Bilateral: clear Cardiovascular: regular rate and rhythm (no mrg) Gastrointestinal: normoactive bowel sounds, soft, non-tender, non-distended Integumentary: normal Extremities: no cyanosis, no edema, pink and warm Neurologic: normal mental status, non-focal exam, pupils equal and round, CN II- XII normal Psychiatric: mood appropriate, affect normal CBC and BMP: 01/18/17 05:47 01/20/17 05:01 ABG, PT/INR, D-dimer: ABG POC ABG pH 7.350 (7.35-7.45) 01/15/17 11:52 POC ABG pCO2 33.0 (35-45) L 01/15/17 11:52 POC ABG pO2 163 (80-105) H 01/15/17 11:52 POC ABG HCO3 18.2 01/15/17 11:52 POC ABG Total CO2 19 01/15/17 11:52 POC ABG O2 Sat 99 01/15/17 11:52 PT/INR, D-dimer PT 15.6 Sec. (12.2-14.9) H 01/14/17 22:04 INR 1.25 (0.87-1.13) H 01/14/17 22:04 Abnormal lab findings: Abnormal Labs 01/15/17 01/15/17 01/15/17 00:15 00:15 00:54 RBC Hgb Hct MCV MCH Lymph % (Auto) [place] % (Auto) Lymph # Seg Neutrophils % POC ABG pCO2 POC ABG pO2 Sodium 131 L D Potassium Chloride 84.5 L Carbon Dioxide 2 L* BUN 44 H Creatinine 2.0 H Glucose 739 H* POC Glucose > 500 H Lactic Acid Calcium 7.7 L Phosphorus 5.7 H Magnesium Total Protein Albumin Urine WBC (Auto) 01/15/17 01/15/17 01/15/17 01:59 03:11 04:30 RBC Hgb Hct MCV MCH Lymph % (Auto) [place] % (Auto) Lymph # Seg Neutrophils % POC ABG pCO2 POC ABG pO2 Sodium Potassium 3.3 L D Chloride 90.9 L Carbon Dioxide 5 L* BUN 39 H Creatinine 1.9 H Glucose 512 H* POC Glucose > 500 H > 500 H Lactic Acid Calcium 7.1 L Phosphorus Magnesium Total Protein Albumin Urine WBC (Auto) 01/15/17 01/15/17 01/15/17 04:52 05:58 06:59 RBC Hgb Hct MCV MCH Lymph % (Auto) [place] % (Auto) Lymph # Seg Neutrophils % POC ABG pCO2 POC ABG pO2 Sodium Potassium 3.3 L Chloride Carbon Dioxide 9 L* BUN 38 H Creatinine 2.0 H Glucose 289 H POC Glucose 461 H 360 H Lactic Acid Calcium 7.4 L Phosphorus Magnesium Total Protein Albumin Urine WBC (Auto) 01/15/17 01/15/17 01/15/17 07:35 07:48 08:53 RBC Hgb Hct MCV MCH Lymph % (Auto) [place] % (Auto) Lymph # Seg Neutrophils % POC ABG pCO2 POC ABG pO2 Sodium Potassium Chloride Carbon Dioxide BUN Creatinine Glucose POC Glucose 227 H 239 H 181 H Lactic Acid Calcium Phosphorus Magnesium Total Protein Albumin Urine WBC (Auto) 01/15/17 01/15/17 01/15/17 09:05 09:59 10:57 RBC Hgb Hct MCV MCH Lymph % (Auto) [place] % (Auto) Lymph # Seg Neutrophils % POC ABG pCO2 POC ABG pO2 Sodium Potassium Chloride Carbon Dioxide BUN Creatinine Glucose POC Glucose 148 H 113 H Lactic Acid 9.4 H* Calcium Phosphorus Magnesium Total Protein Albumin Urine WBC (Auto) 01/15/17 01/15/17 01/15/17 11:48 11:52 12:30 RBC Hgb Hct MCV MCH Lymph % (Auto) [place] % (Auto) Lymph # Seg Neutrophils % POC ABG pCO2 33.0 L POC ABG pO2 163 H Sodium Potassium Chloride Carbon Dioxide BUN Creatinine Glucose POC Glucose 118 H Lactic Acid Calcium Phosphorus Magnesium Total Protein Albumin Urine WBC (Auto) > 182.0 H 01/15/17 01/15/17 01/15/17 13:15 13:31 13:58 RBC Hgb Hct MCV MCH Lymph % (Auto) [place] % (Auto) Lymph # Seg Neutrophils % POC ABG pCO2 POC ABG pO2 Sodium Potassium Chloride Carbon Dioxide BUN Creatinine Glucose POC Glucose 131 H 116 H Lactic Acid 6.2 H* Calcium Phosphorus Magnesium Total Protein Albumin Urine WBC (Auto) 01/15/17 01/15/17 01/15/17 15:11 15:20 17:49 RBC Hgb Hct MCV MCH Lymph % (Auto) [place] % (Auto) Lymph # Seg Neutrophils % POC ABG pCO2 POC ABG pO2 Sodium Potassium Chloride 109.0 H Carbon Dioxide 20 L D BUN 32 H Creatinine 1.6 H Glucose 110 H POC Glucose 110 H 136 H Lactic Acid Calcium 6.7 L Phosphorus Magnesium Total Protein Albumin Urine WBC (Auto) 01/15/17 01/15/17 01/15/17 19:42 20:18 21:14 RBC Hgb Hct MCV MCH Lymph % (Auto) [place] % (Auto) Lymph # Seg Neutrophils % POC ABG pCO2 POC ABG pO2 Sodium Potassium Chloride Carbon Dioxide BUN Creatinine Glucose POC Glucose 186 H 161 H 129 H Lactic Acid Calcium Phosphorus Magnesium Total Protein Albumin Urine WBC (Auto) 01/15/17 01/15/17 01/15/17 21:58 22:30 23:08 RBC Hgb Hct MCV MCH Lymph % (Auto) [place] % (Auto) Lymph # Seg Neutrophils % POC ABG pCO2 POC ABG pO2 Sodium Potassium Chloride 111.0 H Carbon Dioxide 19 L BUN 29 H Creatinine 1.3 H Glucose 114 H POC Glucose 145 H 122 H Lactic Acid Calcium 6.7 L Phosphorus Magnesium Total Protein Albumin Urine WBC (Auto) 01/16/17 01/16/17 01/16/17 01:00 01:00 04:00 RBC 3.21 L Hgb 8.8 L Hct 30.1 L MCV 98 H MCH 27 L Lymph % (Auto) 6.3 L [place] % (Auto) Lymph # 0.4 L Seg Neutrophils % 86.9 H POC ABG pCO2 POC ABG pO2 Sodium Potassium Chloride 109.8 H Carbon Dioxide 19 L BUN 28 H Creatinine Glucose 109 H POC Glucose Lactic Acid 4.5 H* Calcium 6.7 L Phosphorus Magnesium Total Protein Albumin Urine WBC (Auto) 01/16/17 01/16/17 01/16/17 04:00 11:34 17:39 RBC Hgb Hct MCV MCH Lymph % (Auto) [place] % (Auto) Lymph # Seg Neutrophils % POC ABG pCO2 POC ABG pO2 Sodium Potassium Chloride 109.9 H Carbon Dioxide 19 L BUN 27 H Creatinine Glucose 287 H POC Glucose 278 H 161 H Lactic Acid Calcium 6.8 L Phosphorus 1.1 L D Magnesium 1.3 L Total Protein 4.6 L Albumin 2.4 L Urine WBC (Auto) 01/17/17 01/17/17 01/17/17 00:18 05:00 05:00 RBC 3.31 L Hgb 9.2 L Hct 28.0 L MCV MCH Lymph % (Auto) [place] % (Auto) 8.7 H Lymph # 0.8 L Seg Neutrophils % 74.2 H POC ABG pCO2 POC ABG pO2 Sodium Potassium Chloride Carbon Dioxide BUN Creatinine Glucose POC Glucose 118 H Lactic Acid Calcium Phosphorus 2.2 L D Magnesium Total Protein Albumin Urine WBC (Auto) 01/17/17 01/17/17 01/17/17 05:00 05:00 07:50 RBC Hgb Hct MCV MCH Lymph % (Auto) [place] % (Auto) Lymph # Seg Neutrophils % POC ABG pCO2 POC ABG pO2 Sodium Potassium Chloride Carbon Dioxide 18 L BUN Creatinine Glucose 113 H POC Glucose 131 H Lactic Acid 3.8 H* Calcium 7.1 L Phosphorus Magnesium Total Protein Albumin Urine WBC (Auto) 01/17/17 01/17/17 01/17/17 11:47 16:31 17:35 RBC Hgb Hct MCV MCH Lymph % (Auto) [place] % (Auto) Lymph # Seg Neutrophils % POC ABG pCO2 POC ABG pO2 Sodium Potassium Chloride Carbon Dioxide BUN Creatinine Glucose POC Glucose 173 H 152 H 181 H Lactic Acid Calcium Phosphorus Magnesium Total Protein Albumin Urine WBC (Auto) 01/18/17 01/18/17 01/18/17 00:45 03:12 05:47 RBC 3.38 L Hgb 9.3 L Hct 28.6 L MCV MCH Lymph % (Auto) [place] % (Auto) 10.4 H Lymph # 0.9 L Seg Neutrophils % POC ABG pCO2 POC ABG pO2 Sodium Potassium Chloride Carbon Dioxide BUN Creatinine Glucose POC Glucose 48 L 66 L Lactic Acid Calcium Phosphorus Magnesium Total Protein Albumin Urine WBC (Auto) 01/18/17 01/18/17 01/18/17 05:47 05:47 07:04 RBC Hgb Hct MCV MCH Lymph % (Auto) [place] % (Auto) Lymph # Seg Neutrophils % POC ABG pCO2 POC ABG pO2 Sodium 132 L Potassium 3.5 L Chloride Carbon Dioxide 20 L BUN Creatinine Glucose POC Glucose 107 H Lactic Acid 3.0 H* Calcium 7.5 L Phosphorus 2.1 L Magnesium Total Protein Albumin Urine WBC (Auto) 01/18/17 01/18/17 01/18/17 11:36 17:27 18:56 RBC Hgb Hct MCV MCH Lymph % (Auto) [place] % (Auto) Lymph # Seg Neutrophils % POC ABG pCO2 POC ABG pO2 Sodium Potassium Chloride Carbon Dioxide BUN Creatinine Glucose POC Glucose 170 H 41 L 118 H Lactic Acid Calcium Phosphorus Magnesium Total Protein Albumin Urine WBC (Auto) 01/19/17 01/19/17 01/19/17 01:55 05:09 05:35 RBC Hgb Hct MCV MCH Lymph % (Auto) [place] % (Auto) Lymph # Seg Neutrophils % POC ABG pCO2 POC ABG pO2 Sodium 128 L Potassium Chloride 94.3 L Carbon Dioxide 20 L BUN Creatinine Glucose 383 H POC Glucose 289 H 378 H Lactic Acid Calcium 7.5 L Phosphorus Magnesium Total Protein Albumin Urine WBC (Auto) 01/19/17 01/19/17 01/20/17 11:14 21:01 05:01 RBC Hgb Hct MCV MCH Lymph % (Auto) [place] % (Auto) Lymph # Seg Neutrophils % POC ABG pCO2 POC ABG pO2 Sodium 133 L Potassium Chloride Carbon Dioxide BUN Creatinine Glucose 190 H POC Glucose 272 H 151 H Lactic Acid Calcium 7.7 L Phosphorus Magnesium Total Protein Albumin Urine WBC (Auto) 01/20/17 01/20/17 06:46 11:13 RBC Hgb Hct MCV MCH Lymph % (Auto) [place] % (Auto) Lymph # Seg Neutrophils % POC ABG pCO2 POC ABG pO2 Sodium Potassium Chloride Carbon Dioxide BUN Creatinine Glucose POC Glucose 240 H 335 H Lactic Acid Calcium Phosphorus Magnesium Total Protein Albumin Urine WBC (Auto)
--- NOTE | 2017-01-20 16:01 | Progress Note ---
Assessment and Plan Assessment and plan: 1. DKA - pH 6.8, bicarbonate 2 on admission; admitted to ICU, started on insulin drip, IV fluids and electrolytes replacement protocol; AG closed and insulin drip discontinued yesterday; transitioned to long-acting subcutaneous insulin along with SSI to assess requirements 2. Sepsis - lactic acid elevated; UA, urine culture, blood cultures obtained and started on broad-spectrum antibiotics;, then C. difficile positive 01/16; started on metronidazole; UA positive, but urine and blood cultures negative to date; discontinue Vanc and cefepime, continue levofloxacin 3. Shock - septic and hypovolemic; antibiotics (as above)+ metronidazole, hydration; wean off of vasodepressors 4. C diff colitis - started on Flagyl 5. Acute renal failure -due to vasomotor nephropathy versus ATN from hypotension; resolved with IV fluids 6. Severe acidosis - metabolic/lactic; treat underlying conditions; improving 7. Pseudohyponatremia - corrected 8. Acute metabolic encephalopathy - due to all of the above 9. Deconditioning - consult PT 10. DVT - heparin subcutaneous History Interval history: no complaints, ambulating, trying to increase her exercise tolerance Hospitalist Physical - Constitutional Vitals: Temp Pulse Resp BP Pulse Ox 98.5 F 102 H 20 121/84 99 01/20/17 14:53 01/20/17 14:53 01/20/17 14:53 01/20/17 14:53 01/20/17 14:53 General appearance: Present: no acute distress Results - Labs CBC & Chem 7: 01/18/17 05:47 01/20/17 05:01 Labs: Laboratory Last Values WBC 4.8 K/mm3 (4.5-11.0) 01/18/17 05:47 RBC 3.38 M/mm3 (3.65-5.03) L 01/18/17 05:47 Hgb 9.3 gm/dl (10.1-14.3) L 01/18/17 05:47 Hct 28.6 % (30.3-42.9) L 01/18/17 05:47 MCV 85 fl (79-97) 01/18/17 05:47 MCH 28 pg (28-32) 01/18/17 05:47 MCHC 33 % (30-34) 01/18/17 05:47 RDW 14.2 % (13.2-15.2) 01/18/17 05:47 Plt Count 161 K/mm3 (140-440) 01/18/17 05:47 Lymph % (Auto) 19.2 % (13.4-35.0) 01/18/17 05:47 [place] % (Auto) 10.4 % (0.0-7.3) H 01/18/17 05:47 Eos % (Auto) 2.2 % (0.0-4.3) 01/18/17 05:47 Baso % (Auto) 0.2 % (0.0-1.8) 01/18/17 05:47 Lymph # 0.9 K/mm3 (1.2-5.4) L 01/18/17 05:47 [place] # 0.5 K/mm3 (0.0-0.8) 01/18/17 05:47 Eos # 0.1 K/mm3 (0.0-0.4) 01/18/17 05:47 Baso # 0.0 K/mm3 (0.0-0.1) 01/18/17 05:47 Seg Neutrophils % 68.0 % (40.0-70.0) 01/18/17 05:47 Seg Neutrophils # 3.3 K/mm3 (1.8-7.7) 01/18/17 05:47 PT 15.6 Sec. (12.2-14.9) H 01/14/17 22:04 INR 1.25 (0.87-1.13) H 01/14/17 22:04 APTT 24.3 Sec. (24.2-36.6) 01/14/17 22:04 POC ABG pH 7.350 (7.35-7.45) 01/15/17 11:52 POC ABG pCO2 33.0 (35-45) L 01/15/17 11:52 POC ABG pO2 163 (80-105) H 01/15/17 11:52 POC ABG HCO3 18.2 01/15/17 11:52 POC ABG Total CO2 19 01/15/17 11:52 POC ABG O2 Sat 99 01/15/17 11:52 POC ABG Base Excess -7 01/15/17 11:52 VBG pH 6.857 (7.320-7.420) L* 01/14/17 22:04 FiO2 1 % 01/15/17 11:52 Sodium 133 mmol/L (137-145) L 01/20/17 05:01 Potassium 4.1 mmol/L (3.6-5.0) 01/20/17 05:01 Chloride 98.1 mmol/L (98-107) 01/20/17 05:01 Carbon Dioxide 23 mmol/L (22-30) 01/20/17 05:01 Anion Gap 16 mmol/L 01/20/17 05:01 BUN 12 mg/dL (7-17) 01/20/17 05:01 Creatinine 0.8 mg/dL (0.7-1.2) 01/20/17 05:01 Estimated GFR > 60 ml/min 01/20/17 05:01 BUN/Creatinine Ratio 15.00 % 01/20/17 05:01 Glucose 190 mg/dL (65-100) H 01/20/17 05:01 POC Glucose 335 (70-105) H 01/20/17 11:13 Lactic Acid 3.0 mmol/L (0.7-2.0) H* 01/18/17 05:47 Calcium 7.7 mg/dL (8.4-10.2) L 01/20/17 05:01 Phosphorus 2.1 mg/dL (2.5-4.5) L 01/18/17 05:47 Magnesium 1.8 mg/dL (1.7-2.3) 01/19/17 05:09 Total Bilirubin 0.2 mg/dL (0.1-1.2) 01/16/17 04:00 AST 34 units/L (5-40) 01/16/17 04:00 ALT 30 units/L (7-56) 01/16/17 04:00 Alkaline Phosphatase 75 units/L (35-129) 01/16/17 04:00 Total Creatine Kinase 120 units/L (30-135) 01/14/17 22:04 CK-MB (CK-2) 3.6 ng/mL (0.0-4.0) 01/14/17 22:04 CK-MB (CK-2) Rel Index 3.0 (0-4) 01/14/17 22:04 Troponin T < 0.010 ng/mL (0.00-0.029) 01/14/17 22:04 NT-Pro-B Natriuret Pep 768.5 pg/mL (0-900) 01/14/17 22:04 Total Protein 4.6 g/dL (6.3-8.2) L 01/16/17 04:00 Albumin 2.4 g/dL (3.9-5) L 01/16/17 04:00 Albumin/Globulin Ratio 1.1 % 01/16/17 04:00 Urine Color Yellow (Yellow) 01/15/17 12:30 Urine Turbidity Turbid (Clear) 01/15/17 12:30 Urine pH 5.0 (5.0-7.0) 01/15/17 12:30 Ur Specific [place] 1.016 (1.003-1.030) 01/15/17 12:30 Urine Protein 30 mg/dl mg/dL (Negative) 01/15/17 12:30 Urine Glucose (UA) Neg mg/dL (Negative) 01/15/17 12:30 Urine Ketones 20 mg/dL (Negative) 01/15/17 12:30 Urine Blood Mod (Negative) 01/15/17 12:30 Urine Nitrite Neg (Negative) 01/15/17 12:30 Urine Bilirubin Neg (Negative) 01/15/17 12:30 Urine Urobilinogen < 2.0 mg/dL (<2.0) 01/15/17 12:30 Ur Leukocyte Esterase Lg (Negative) 01/15/17 12:30 Urine WBC (Auto) > 182.0 /HPF (0.0-6.0) H 01/15/17 12:30 Urine RBC (Auto) 39.0 /HPF (0.0-6.0) 01/15/17 12:30 U Epithel Cells (Auto) 4.0 /HPF (0-13.0) 01/15/17 12:30 Urine Bacteria (Auto) 1+ /HPF (Negative) 01/15/17 12:30 Urine Mucus Few /HPF 01/15/17 12:30 Urine Opiates Screen Presumptive negative 01/15/17 12:30 Urine Methadone Screen Presumptive negative 01/15/17 12:30 Ur Barbiturates Screen Presumptive negative 01/15/17 12:30 Ur Phencyclidine Scrn Presumptive negative 01/15/17 12:30 Ur Amphetamines Screen Presumptive negative 01/15/17 12:30 U Benzodiazepines Scrn Presumptive negative 01/15/17 12:30 Urine Cocaine Screen Presumptive negative 01/15/17 12:30 U Marijuana (THC) Screen Presumptive negative 01/15/17 12:30 Drugs of Abuse Note Disclamer 01/15/17 12:30 Plasma/Serum Alcohol < 0.01 gm% (0-0.07) 01/14/17 22:04 Ketones 141.4 mg/dL (0.2-2.8) H 01/14/17 22:04
[2017-01-21] MEDS: FLAGYL PO SCH ×3 (06:29→22:07)
[2017-01-21] MEDS: HEPARIN SUB-Q SCH ×3 (06:30→22:10)
[2017-01-21] MEDS: D50W (25GM) IV PRN (06:59)
[2017-01-21] MEDS: NEURONTIN PO SCH ×3 (09:09→20:35)
[2017-01-21] MEDS: PEPCID PO SCH ×2 (10:10→22:08)
[2017-01-21] MEDS: APRESOLINE IV PRN ×2 (12:43→16:14)
--- NOTE | 2017-01-21 22:59 | Progress Note ---
Assessment and Plan Assessment and plan: 1. DKA - pH 6.8, bicarbonate 2 on admission; admitted to ICU, started on insulin drip, IV fluids and electrolytes replacement protocol; AG closed and insulin drip discontinued yesterday; transitioned to long-acting subcutaneous insulin along with SSI to assess requirements 2. Sepsis - lactic acid elevated; UA, urine culture, blood cultures obtained and started on broad-spectrum antibiotics;, then C. difficile positive 01/16; started on metronidazole; UA positive, but urine and blood cultures negative to date; discontinue Vanc and cefepime, continue levofloxacin 3. Shock - septic and hypovolemic; antibiotics (as above)+ metronidazole, hydration; wean off of vasodepressors 4. C diff colitis - started on Flagyl 5. Acute renal failure -due to vasomotor nephropathy versus ATN from hypotension; resolved with IV fluids 6. Severe acidosis - metabolic/lactic; treat underlying conditions; improving 7. Pseudohyponatremia - corrected 8. Acute metabolic encephalopathy - due to all of the above 9. Deconditioning - consult PT 10. DVT - heparin subcutaneous 11. Discharge planning issues Case management consulted for rehab/subacute placement History Interval history: doing well, no complaints except for weakness Hospitalist Physical - Constitutional Vitals: Temp Pulse Resp BP Pulse Ox 97.9 F 118 H 18 129/77 99 01/21/17 21:01 01/21/17 21:01 01/21/17 21:01 01/21/17 21:01 01/21/17 21:01 General appearance: Present: no acute distress Results - Labs CBC & Chem 7: 01/18/17 05:47 01/20/17 05:01 Labs: Laboratory Last Values WBC 4.8 K/mm3 (4.5-11.0) 01/18/17 05:47 RBC 3.38 M/mm3 (3.65-5.03) L 01/18/17 05:47 Hgb 9.3 gm/dl (10.1-14.3) L 01/18/17 05:47 Hct 28.6 % (30.3-42.9) L 01/18/17 05:47 MCV 85 fl (79-97) 01/18/17 05:47 MCH 28 pg (28-32) 01/18/17 05:47 MCHC 33 % (30-34) 01/18/17 05:47 RDW 14.2 % (13.2-15.2) 01/18/17 05:47 Plt Count 161 K/mm3 (140-440) 01/18/17 05:47 Lymph % (Auto) 19.2 % (13.4-35.0) 01/18/17 05:47 [place] % (Auto) 10.4 % (0.0-7.3) H 01/18/17 05:47 Eos % (Auto) 2.2 % (0.0-4.3) 01/18/17 05:47 Baso % (Auto) 0.2 % (0.0-1.8) 01/18/17 05:47 Lymph # 0.9 K/mm3 (1.2-5.4) L 01/18/17 05:47 [place] # 0.5 K/mm3 (0.0-0.8) 01/18/17 05:47 Eos # 0.1 K/mm3 (0.0-0.4) 01/18/17 05:47 Baso # 0.0 K/mm3 (0.0-0.1) 01/18/17 05:47 Seg Neutrophils % 68.0 % (40.0-70.0) 01/18/17 05:47 Seg Neutrophils # 3.3 K/mm3 (1.8-7.7) 01/18/17 05:47 PT 15.6 Sec. (12.2-14.9) H 01/14/17 22:04 INR 1.25 (0.87-1.13) H 01/14/17 22:04 APTT 24.3 Sec. (24.2-36.6) 01/14/17 22:04 POC ABG pH 7.350 (7.35-7.45) 01/15/17 11:52 POC ABG pCO2 33.0 (35-45) L 01/15/17 11:52 POC ABG pO2 163 (80-105) H 01/15/17 11:52 POC ABG HCO3 18.2 01/15/17 11:52 POC ABG Total CO2 19 01/15/17 11:52 POC ABG O2 Sat 99 01/15/17 11:52 POC ABG Base Excess -7 01/15/17 11:52 VBG pH 6.857 (7.320-7.420) L* 01/14/17 22:04 FiO2 1 % 01/15/17 11:52 Sodium 133 mmol/L (137-145) L 01/20/17 05:01 Potassium 4.1 mmol/L (3.6-5.0) 01/20/17 05:01 Chloride 98.1 mmol/L (98-107) 01/20/17 05:01 Carbon Dioxide 23 mmol/L (22-30) 01/20/17 05:01 Anion Gap 16 mmol/L 01/20/17 05:01 BUN 12 mg/dL (7-17) 01/20/17 05:01 Creatinine 0.8 mg/dL (0.7-1.2) 01/20/17 05:01 Estimated GFR > 60 ml/min 01/20/17 05:01 BUN/Creatinine Ratio 15.00 % 01/20/17 05:01 Glucose 190 mg/dL (65-100) H 01/20/17 05:01 POC Glucose 99 (70-105) 01/21/17 21:56 Lactic Acid 3.0 mmol/L (0.7-2.0) H* 01/18/17 05:47 Calcium 7.7 mg/dL (8.4-10.2) L 01/20/17 05:01 Phosphorus 2.1 mg/dL (2.5-4.5) L 01/18/17 05:47 Magnesium 1.8 mg/dL (1.7-2.3) 01/19/17 05:09 Total Bilirubin 0.2 mg/dL (0.1-1.2) 01/16/17 04:00 AST 34 units/L (5-40) 01/16/17 04:00 ALT 30 units/L (7-56) 01/16/17 04:00 Alkaline Phosphatase 75 units/L (35-129) 01/16/17 04:00 Total Creatine Kinase 120 units/L (30-135) 01/14/17 22:04 CK-MB (CK-2) 3.6 ng/mL (0.0-4.0) 01/14/17 22:04 CK-MB (CK-2) Rel Index 3.0 (0-4) 01/14/17 22:04 Troponin T < 0.010 ng/mL (0.00-0.029) 01/14/17 22:04 NT-Pro-B Natriuret Pep 768.5 pg/mL (0-900) 01/14/17 22:04 Total Protein 4.6 g/dL (6.3-8.2) L 01/16/17 04:00 Albumin 2.4 g/dL (3.9-5) L 01/16/17 04:00 Albumin/Globulin Ratio 1.1 % 01/16/17 04:00 Urine Color Yellow (Yellow) 01/15/17 12:30 Urine Turbidity Turbid (Clear) 01/15/17 12:30 Urine pH 5.0 (5.0-7.0) 01/15/17 12:30 Ur Specific [place] 1.016 (1.003-1.030) 01/15/17 12:30 Urine Protein 30 mg/dl mg/dL (Negative) 01/15/17 12:30 Urine Glucose (UA) Neg mg/dL (Negative) 01/15/17 12:30 Urine Ketones 20 mg/dL (Negative) 01/15/17 12:30 Urine Blood Mod (Negative) 01/15/17 12:30 Urine Nitrite Neg (Negative) 01/15/17 12:30 Urine Bilirubin Neg (Negative) 01/15/17 12:30 Urine Urobilinogen < 2.0 mg/dL (<2.0) 01/15/17 12:30 Ur Leukocyte Esterase Lg (Negative) 01/15/17 12:30 Urine WBC (Auto) > 182.0 /HPF (0.0-6.0) H 01/15/17 12:30 Urine RBC (Auto) 39.0 /HPF (0.0-6.0) 01/15/17 12:30 U Epithel Cells (Auto) 4.0 /HPF (0-13.0) 01/15/17 12:30 Urine Bacteria (Auto) 1+ /HPF (Negative) 01/15/17 12:30 Urine Mucus Few /HPF 01/15/17 12:30 Urine Opiates Screen Presumptive negative 01/15/17 12:30 Urine Methadone Screen Presumptive negative 01/15/17 12:30 Ur Barbiturates Screen Presumptive negative 01/15/17 12:30 Ur Phencyclidine Scrn Presumptive negative 01/15/17 12:30 Ur Amphetamines Screen Presumptive negative 01/15/17 12:30 U Benzodiazepines Scrn Presumptive negative 01/15/17 12:30 Urine Cocaine Screen Presumptive negative 01/15/17 12:30 U Marijuana (THC) Screen Presumptive negative 01/15/17 12:30 Drugs of Abuse Note Disclamer 01/15/17 12:30 Plasma/Serum Alcohol < 0.01 gm% (0-0.07) 01/14/17 22:04 Ketones 141.4 mg/dL (0.2-2.8) H 01/14/17 22:04
[2017-01-22] MEDS: FLAGYL PO SCH ×2 (05:30→16:31)
[2017-01-22] MEDS: HEPARIN SUB-Q SCH ×2 (05:30→16:29)
[2017-01-22 06:14] LABS: Basophils % (Auto) 0.5 % (0.0-1.8); Eosinophils % (Auto) 1.4 % (0.0-4.3); Hematocrit 27.1 % (30.3-42.9); Hemoglobin 8.9 gm/dl (10.1-14.3); Mean Corpuscular HGB Conc 33 % (30-34); Mean Corpuscular Hemoglobin 28 pg (28-32); Mean Corpuscular Volume 85 fl (79-97); Platelet Count 228 K/mm3 (140-440); Red Blood Count 3.19 M/mm3 (3.65-5.03); Red Cell Distribution Width 14.2 % (13.2-15.2); White Blood Count 4.5 K/mm3 (4.5-11.0)
[2017-01-22 06:35] LABS: Anion Gap 14 mmol/L; BUN/Creatinine Ratio 11.25; Blood Urea Nitrogen 9 mg/dL (7-17); Calcium 7.9 mg/dL (8.4-10.2); Carbon Dioxide 23 mmol/L (22-30); Chloride 97.1 mmol/L (98-107); Glucose 194 mg/dL (65-100); Iron 29 ug/dL (37-170); Potassium 4.6 mmol/L (3.6-5.0); Sodium 129 mmol/L (137-145); Total Iron Binding Capacity 185 mcg/dL (250-450)
[2017-01-22] MEDS: PEPCID PO SCH (09:16)
[2017-01-22] MEDS: NEURONTIN PO SCH ×2 (09:16→16:31)
--- NOTE | 2017-01-22 09:55 | Cat Scan Report ---
FINAL REPORT PROCEDURE: CT HEAD/BRAIN WO CON TECHNIQUE: Computerized tomography of the head was performed without contrast material. HISTORY: AMS COMPARISON: None FINDINGS: The skull base and calvarium are intact. The partially visualized paranasal sinuses, mastoid air cells and middle ears are clear. Incidentally seen is small bilateral EAC cerumen. The study is partially motion compromised particularly at the level of the skullbase. There is no suspected intra or extra-axial hemorrhage. There is no mass effect or shift of midline structures. Brain volume is age appropriate. There is subtle deep white matter microvascular ischemic change. There is no CT evident acute infarction. IMPRESSION: No CT evident acute intracranial process. Consider if desired MRI of the brain with and without contrast to include diffusion to most sensitively exclude subtle intracranial pathology/breakdown of the blood-brain barrier.
--- NOTE | 2017-01-22 10:13 | Discharge Summary ---
Providers - Providers Date of Admission: 01/14/17 23:49 Date of discharge: 01/22/17 Attending physician: ALEX LARSEN 01/17/17 11:50 Occupational Therapy Evaluate and Treat [CONS] Routine Comment: Reason For Exam: Deconditioning Physical Therapy Evaluation and Treat [CONS] Routine Comment: Reason For Exam: deconditioning 01/21/17 23:01 Consult to Case Management [CONS] Routine Services Needed at Discharge: Other Physical Therapy Notified:: yes Phone number called:: on floor Was contact made?: Yes If yes, spoke with:: dianne Time called:: 10:07 CRITICAL CARE Hospitalization Condition: Stable Disposition: DC/TX HOME UNDER HOME HEALTH Time spent for discharge: 35 min Core Measure Documentation - Palliative Care Palliative Care/ Comfort Measures: Not Applicable - Core Measures Any of the following diagnoses?: none Exam - Physical Exam Narrative exam: Patient seen and examined; - Constitutional Vitals: Temp Pulse Resp BP Pulse Ox 98.1 F 110 H 18 132/84 98 01/22/17 08:00 01/22/17 08:00 01/22/17 08:00 01/22/17 08:00 01/22/17 08:00 General appearance: Present: no acute distress - EENT Eyes: Present: PERRL, EOM intact. Absent: scleral icterus, conjunctival injection - Neck Neck: Present: supple, normal ROM. Absent: masses or JVD - Respiratory Respiratory effort: normal Respiratory: bilateral: CTA, negative: rales, rhonchi, wheezing - Cardiovascular Rhythm: other (tachycardic) Heart Sounds: Present: S1 & S2. Absent: systolic murmur - Extremities Extremities: no ischemia, No edema - Abdominal General gastrointestinal: Present: soft, non-tender, non-distended, normal bowel sounds - Integumentary Integumentary: Present: warm, dry. Absent: jaundice, rash - Musculoskeletal Musculoskeletal: generalized weakness - Psychiatric Psychiatric: cooperative - Neurologic Neurologic: CNII-XII intact, no focal deficits Plan Activity: advance as tolerated, fall precautions Diet: low cholesterol, low salt, diabetic Follow up with: PRIMARY CARE, [Referring] - 3-5 Days [facility] [Outside] - 3 Days Prescriptions: AtorvaSTATin 10 mg PO QDAY #30 Famotidine [Pepcid] 20 mg PO BID #60 tablet Ferrous Sulfate [Feosol 325 MG tab] 325 mg PO BID #60 tablet Folic Acid [Folvite] 1 mg PO QDAY #30 tablet Gabapentin [Neurontin] 300 mg PO TID #90 capsule Insulin NPH/Regular [NovoLIN 70/30] 10 unit SUB-Q BIDDIAB 30 Days Lisinopril 20 mg PO DAILY #30 metroNIDAZOLE [Flagyl TAB] 500 mg PO Q8HR #12 tablet
[2017-01-22 16:07] VITALS: BP 132/80
== END 2017-01-22 19:15 | disposition home health service (06) | DRG 871 ==
LOC: ED 21:30 → CC1 23:49 → 3A 01-17 18:26
PROVIDERS: ADMIT Internal Medicine; ATTEND Internal Medicine
PROC: 0YH733Z Insertion of Infusion Device into Right Femoral Region, Percutaneous Approach (ICD-10-PCS; principal; 2017-01-14)
DX: A41.9 Sepsis, unspecified organism (principal); R65.21 Severe sepsis with septic shock; E13.10 Other specified diabetes mellitus with ketoacidosis without coma; N17.0 Acute kidney failure with tubular necrosis; G93.41 Metabolic encephalopathy; N39.0 Urinary tract infection, site not specified; E87.1 Hypo-osmolality and hyponatremia; A04.7 Enterocolitis due to Clostridium difficile; Z90.89 Acquired absence of other organs; Z88.6 Allergy status to analgesic agent; Z83.3 Family history of diabetes mellitus
CPT/HCPCS: 36415; 36600; 51702; 70450; 71010; 80048; 80053; 80307; 80320; 81001; 82010; 82140; 82550; 82553; 82607; 82747; 82803; 82805; 82962; 83550; 83735; 83880; 84100; 84484; 85025; 85610; 85730; 87040; 87086; 87493; 94760; 96361; 96365; 96366; 96367; 96375; 96376; G0480; J0360; J0692; J0696; J1644; J1815; J1956; J3370; J3475; J3480; J7030; J7040; J7050